=== PATIENT | female | born 1930 | race Caucasian/White ===

== ENCOUNTER 2019-01-04 12:53 | Inpatient (IN) ==
[2019-01-04 13:58] LABS: Basophils % 0.1 %; Eosinophils # 0.3 K/mcL (0.0-0.6); Eosinophils % 3.7 %; Hemoglobin 11.2 g/dL (11.5-15.4); Immature Granulocytes % 0.4 % (0-4); Lymphocytes # 0.5 K/mcL (0.6-4.6); Lymphocytes % 6.7 %; Mean Corpuscular HGB Conc 32.9 g/dL (31.6-35.5); Mean Corpuscular Hemoglobin 30.9 pg (28.0-33.3); Mean Corpuscular Volume 93.7 fL (83.0-100.0); Mean Platelet Volume 9.8 fL (9.4-12.4); Monocytes # 0.6 K/mcL (0.0-1.3); Monocytes % 7.6 %; Platelet Count 254 K/mcL (140-400); Red Blood Count 3.63 M/mcL (3.82-4.97); Red Cell Distribution Width 12.4 % (11.5-14.5); Segmented Neutrophils % 81.5 %
--- NOTE | 2019-01-04 14:06 | Emergency Department Note ---
Disposition Clinical Impression: Weakness Disposition: Admitted As Inpatient Condition: Fair Referrals: Nolberto Zimmer DO [Primary Care Provider] - Forms: ED Satisfaction Letter General Adult HPI - General Chief complaint: ED Weakness Stated complaint: weak Time Seen by Provider: 01/04/19 13:00 Source: patient Mode of arrival: private vehicle Limitations: no limitations Nursing Notes Reviewed: Yes Vital Signs Reviewed: Yes - History of Present Illness HPI Narrative: Patient is an 88-year-old female with past medical history of overactive bladder causing incontinence, essential tremor, low iron, coming in today after family found her on her bathroom floor around 11 AM this morning. Patient states she fell soon after she got up around 7 AM this morning. 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 States that she was dx with a UTI on 12/26/18 and placed on macrobid, which she finished today. She states that she did not have any symptoms of a UTI, but they found it in her urine so gave her abx. She fell this morning while in the bathroom because she could not hold herself up. She has no complaints at this moment, states that nothing hurts. Pain Scale: 0 - Related Data Home Medications Medication Instructions Recorded Confirmed Primidone [Mysoline] 50 mg PO BID 02/10/17 01/04/19 Acetaminophen [Tylenol Arthritis] 650 mg PO QAM 02/26/17 01/04/19 Cholecalciferol (D-3) [Vitamin D] 5,000 unit PO DAILY 02/26/17 01/04/19 Cyanocobalamin (Vitamin B-12) 1,000 mcg PO DAILY 02/26/17 01/04/19 [Vitamin B12] Denosumab [Prolia (For Outpatient 60 mg SQ [id number] 01/04/19 01/04/19 Infusion)] Ferrous Sulfate [Iron] 325 mg PO DAILY 01/04/19 01/04/19 Mirabegron [Myrbetriq] 50 mg PO DAILY 01/04/19 01/04/19 [place]-3/Dha/Epa/Fish Oil [Fish Oil 1 cap PO BID 01/04/19 01/04/19 1,000 mg Softgel] Previous Rx's Medication Instructions Recorded Nitrofurantoin (BID) [Macrobid] 100 mg PO BID #14 capsule 03/06/17 Allergies Allergy/AdvReac Type Severity Reaction Status Date / Time aspirin Allergy Swelling Verified 01/04/19 15:54 of Lip/Tongue/Throat Review of Systems: All systems ED: reviewed and negative except as stated. Constitutional: Denies: fever, chills ENT ED: Denies: ear pain, throat pain Cardiovascular: Denies: chest pain, palpitations Respiratory: Denies: cough, dyspnea Gastrointestinal: Denies: abdominal pain, nausea, vomiting, diarrhea, constipation Genitourinary: Denies: urgency, dysuria, frequency Musculoskeletal: Denies: back pain, neck pain Integumentary: Denies: rash, abrasion Neurological: Denies: headache, numbness, paresthesias Reports: weakness - inability to hold self up, walk Psychiatric: Denies: anxiety, depression Endocrine: Denies: fatigue, heat or cold intolerance Hematological/Lymphatic: Denies: easy bleeding, easy bruising Allergic/Immunologic: Denies: facial swelling, urticaria Past Medical History - Past Medical History Attestation: Yes The following information was validated with the patient. Source: patient Medical history: Reports: arthritis, cancer, osteoporosis, other Surgical history: Reports: hysterectomy, other Psychiatric history: Reports: no psych history - Social History Smoking Status: Never smoker Smokeless Tobacco Status: No Alcohol use: Reports: none Drug use: Reports: none Physical Exam General: A&O x 3. No acute distress. Well developed, thin Head: atraumatic, normocephalic. ENT: No conjunctival injection, no scleral icterus. PERRLA. EOMI. Oropharynx non- erythematous. mucous membranes dry. Neuro: No focal deficits, no speech deficit, no facial droop, mentating well. BUE/BLE Str 5/5. CN II-XII grossly intact. cerebellar testing with [id number] intact but complicated by essential tremor. Pt unable to complete ejmp-bu-xcok bilaterally due to weakness. Pulm: Lungs CTAB A/P. No wheezes, rales, ronchi. Cardio: RRR no m/r/g. Chest not tender to palpation. Abd: Soft, non-distended. Normoactive bowel sounds. Non-tender to palpation. No guarding. Non rigid. Extremities: Radial pulses 2+ rocael, dorsalis pedis/posterior tibialis 2+ rocael. Mild, non-pitting LE edema. No cyanosis, clubbing. Skin: warm, dry, intact. No rashes. Psych: Appropriate mood and affect. Answers questions appropriately. Cooperative with exam. - General Limitations: no limitations General appearance: alert, in no apparent distress Course Course Narrative: Ddx includes: UTI, urosepsis, electrolyte abnormality, cardiac arrhythmia, dehydration Workup will include: CBC, BMP, CK, UA, urine culture, CXR, Lactic, Blood cultures Vital Signs Temperature 100.9 F H 01/04/19 12:58 Pulse Rate 78 01/04/19 12:58 Respiratory Rate 18 01/04/19 12:58 Blood Pressure 125/68 01/04/19 12:58 O2 Sat by Pulse Oximetry 96 01/04/19 12:58 Temperature 100.9 F H 01/04/19 12:58 Pulse Rate 84 01/04/19 15:54 Respiratory Rate 16 01/04/19 15:54 Blood Pressure 120/74 01/04/19 15:54 O2 Sat by Pulse Oximetry 93 01/04/19 15:54 Oxygen Delivery Oxygen Delivery Room Air Medical Decision Making - MDM Narrative Medical decision making narrative: Pts workup was unrevealing as to cause of weakness, mild fever, and tachycardia. She was given 500mL bolus in the department without significant change in vitals. CXR did not reveal acute abnormality. Head CT was negative for acute findings. Lab work did not reveal any acute findings. Pt was admitted to Dr. Moris sims for further work. Patient was given an opportunity to ask questions at bedside and all of their concerns were addressed. Patient verbalized understanding and agreement with plan of care. Pt remained stable while in the department. - Medical Records Medical records reviewed: Yes I reviewed the patient's medical records. - Lab Data Lab results reviewed: Yes I reviewed the patient's lab results. Result diagrams: 01/04/19 13:31 01/04/19 13:31 Lab Results 01/04/19 01/04/19 01/04/19 Range/Units 13:31 13:31 15:30 WBC 7.4 (4.3-11.1) K/mcL RBC 3.63 L (3.82-4.97) M/mcL Hgb 11.2 L (11.5-15.4) g/dL Hct 34.0 L (35.3-44.9) % MCV 93.7 (83.0-100.0) fL MCH 30.9 (28.0-33.3) pg MCHC 32.9 (31.6-35.5) g/dL RDW 12.4 (11.5-14.5) % Plt Count 254 (140-400) K/mcL MPV 9.8 (9.4-12.4) fL Immature Gran % 0.4 (0-4) % Seg Neutrophils % 81.5 % Lymphocytes % 6.7 % Monocytes % 7.6 % Eosinophils % 3.7 % Basophils % 0.1 % Neutrophils # 6.0 (1.6-8.9) K/mcL Lymphocytes # 0.5 L (0.6-4.6) K/mcL Monocytes # 0.6 (0.0-1.3) K/mcL Eosinophils # 0.3 (0.0-0.6) K/mcL Basophils # 0.0 (0.0-0.2) K/mcL Sodium 136 (136-145) mEq/L Potassium 4.0 (3.5-5.1) mEq/L Chloride 100 (98-107) mEq/L Carbon Dioxide 24 (23-29) mEq/L BUN 34 H (8-23) mg/dL Creatinine 1.35 H (0.60-1.20) mg/dL Est GFR ( Amer) 45 L (> 60) Est GFR (Non-Af Amer) 37 L (> 60) BUN/Creatinine Ratio 25 (6-26) Glucose 215 H (70-105) mg/dL Calculated Osmolality 296 (280-300) Calcium 9.0 (8.6-10.3) mg/dL Phosphorus 2.9 (2.7-4.5) mg/dL Magnesium 2.0 (1.6-2.6) mg/dL Creatine Kinase 46 (30-223) Units/L Troponin I 0.03 (< 0.04) ng/mL Urine Color Yellow (Yellow) Urine Clarity Clear (Clear) Urine pH 5.5 (5.0-8.0) pH Units Ur Specific [place] 1.016 (1.010-1.025) Urine Protein Negative (Neg-Trace) mg/dL Urine Glucose (UA) Normal (Normal) mg/dL Urine Ketones Negative (Negative) mg/dL Urine Blood Small H (Negative) Urine Nitrite Negative (Negative) Urine Bilirubin Negative (Negative) Urine Urobilinogen Normal (Normal) mg/dL Ur Leukocyte Esterase Negative (Negative) Urine Microscopic RBC 5-15 H (0-3) per hpf Urine Microscopic WBC 3-5 H (0-3) per hpf Ur Squamous Epith Cells Many H (None-Few) per lpf Urine Bacteria None Seen (None-Few) per hpf Hyaline Casts None Seen (None-Few) per lpf Ur Culture Indicated? NO (NO) - Radiology Data Radiology results reviewed: Yes I reviewed the patient's radiology results. Head CT 01/04/19 14:03 IMPRESSION: No acute intracranial abnormality. Nonspecific white matter disease, likely due to chronic small vessel ischemia. Mild age-related atrophy. D/ / 01/04/2019 16:03:17 Otoniel Martinez MD / cara Interpreting Provider: Otoniel Martinez MD Chest X-Ray 01/04/19 14:04 IMPRESSION: 1. Mild bibasilar opacities, favored to represent atelectasis. 2. Borderline enlargement of the cardiac silhouette. D/ / Thomas Buckley MD / Thomas Buckley MD Interpreting Provider: Thomas Buckley MD - EKG Data EKG #1 EKG attestation: Yes I reviewed and interpreted this EKG. EKG results narrative: HR 105, rhythm sinus tachycardia with frequent PVCs. OR 161, QRS 90, QTc 395. Widespread St depression without any ST elevation. Comparison study from 02/26/17 has baseline artifact and is difficult to compare. Critical Care Time Critical Care Time: No
[2019-01-04 14:26] LABS: Troponin I 0.03 ng/mL (< 0.04)
[2019-01-04 14:30] LABS: Phosphorous 2.9 mg/dL (2.7-4.5)
--- NOTE | 2019-01-04 14:42 | Emergency Department Note ---
Disposition Clinical Impression: Weakness Disposition: Admitted As Inpatient Condition: Fair Forms: ED Satisfaction Letter Time of Disposition: 16:30 General Adult HPI - General Chief complaint: ED Weakness Stated complaint: weak Time Seen by Provider: 01/04/19 13:00 Source: patient Mode of arrival: private vehicle Limitations: no limitations - History of Present Illness Pain Scale: 0 - Related Data Home Medications Medication Instructions Recorded Confirmed Primidone [Mysoline] 50 mg PO BID 02/10/17 01/04/19 Acetaminophen [Tylenol Arthritis] 650 mg PO QAM 02/26/17 01/04/19 Cholecalciferol (D-3) [Vitamin D] 5,000 unit PO DAILY 02/26/17 01/04/19 Cyanocobalamin (Vitamin B-12) 1,000 mcg PO DAILY 02/26/17 01/04/19 [Vitamin B12] Denosumab [Prolia (For Outpatient 60 mg SQ [id number] 01/04/19 01/04/19 Infusion)] Ferrous Sulfate [Iron] 325 mg PO DAILY 01/04/19 01/04/19 Mirabegron [Myrbetriq] 50 mg PO DAILY 01/04/19 01/04/19 [place]-3/Dha/Epa/Fish Oil [Fish Oil 1 cap PO BID 01/04/19 01/04/19 1,000 mg Softgel] Previous Rx's Medication Instructions Recorded Nitrofurantoin (BID) [Macrobid] 100 mg PO BID #14 capsule 03/06/17 Allergies Allergy/AdvReac Type Severity Reaction Status Date / Time aspirin Allergy Swelling Verified 01/04/19 15:54 of Lip/Tongue/Throat Past Medical History - Past Medical History Medical history: Reports: arthritis, cancer, osteoporosis, other Surgical history: Reports: hysterectomy, other Psychiatric history: Reports: no psych history - Social History Smoking Status: Never smoker Smokeless Tobacco Status: No Alcohol use: Reports: none Drug use: Reports: none Physical Exam - General Limitations: no limitations General appearance: alert, in no apparent distress Course Vital Signs Temperature 100.9 F H 01/04/19 12:58 Pulse Rate 78 01/04/19 12:58 Respiratory Rate 18 01/04/19 12:58 Blood Pressure 125/68 01/04/19 12:58 O2 Sat by Pulse Oximetry 96 01/04/19 12:58 Temperature 100.9 F H 01/04/19 12:58 Pulse Rate 84 01/04/19 15:54 Respiratory Rate 16 01/04/19 15:54 Blood Pressure 120/74 01/04/19 15:54 O2 Sat by Pulse Oximetry 93 01/04/19 15:54 Oxygen Delivery Oxygen Delivery Room Air Medical Decision Making - Lab Data Result diagrams: 01/04/19 13:31 01/04/19 13:31 Lab Results 01/04/19 01/04/19 01/04/19 Range/Units 13:31 13:31 15:30 WBC 7.4 (4.3-11.1) K/mcL RBC 3.63 L (3.82-4.97) M/mcL Hgb 11.2 L (11.5-15.4) g/dL Hct 34.0 L (35.3-44.9) % MCV 93.7 (83.0-100.0) fL MCH 30.9 (28.0-33.3) pg MCHC 32.9 (31.6-35.5) g/dL RDW 12.4 (11.5-14.5) % Plt Count 254 (140-400) K/mcL MPV 9.8 (9.4-12.4) fL Immature Gran % 0.4 (0-4) % Seg Neutrophils % 81.5 % Lymphocytes % 6.7 % Monocytes % 7.6 % Eosinophils % 3.7 % Basophils % 0.1 % Neutrophils # 6.0 (1.6-8.9) K/mcL Lymphocytes # 0.5 L (0.6-4.6) K/mcL Monocytes # 0.6 (0.0-1.3) K/mcL Eosinophils # 0.3 (0.0-0.6) K/mcL Basophils # 0.0 (0.0-0.2) K/mcL Sodium 136 (136-145) mEq/L Potassium 4.0 (3.5-5.1) mEq/L Chloride 100 (98-107) mEq/L Carbon Dioxide 24 (23-29) mEq/L BUN 34 H (8-23) mg/dL Creatinine 1.35 H (0.60-1.20) mg/dL Est GFR ( Amer) 45 L (> 60) Est GFR (Non-Af Amer) 37 L (> 60) BUN/Creatinine Ratio 25 (6-26) Glucose 215 H (70-105) mg/dL Calculated Osmolality 296 (280-300) Calcium 9.0 (8.6-10.3) mg/dL Phosphorus 2.9 (2.7-4.5) mg/dL Magnesium 2.0 (1.6-2.6) mg/dL Creatine Kinase 46 (30-223) Units/L Troponin I 0.03 (< 0.04) ng/mL Urine Color Yellow (Yellow) Urine Clarity Clear (Clear) Urine pH 5.5 (5.0-8.0) pH Units Ur Specific [place] 1.016 (1.010-1.025) Urine Protein Negative (Neg-Trace) mg/dL Urine Glucose (UA) Normal (Normal) mg/dL Urine Ketones Negative (Negative) mg/dL Urine Blood Small H (Negative) Urine Nitrite Negative (Negative) Urine Bilirubin Negative (Negative) Urine Urobilinogen Normal (Normal) mg/dL Ur Leukocyte Esterase Negative (Negative) Urine Microscopic RBC 5-15 H (0-3) per hpf Urine Microscopic WBC 3-5 H (0-3) per hpf Ur Squamous Epith Cells Many H (None-Few) per lpf Urine Bacteria None Seen (None-Few) per hpf Hyaline Casts None Seen (None-Few) per lpf Ur Culture Indicated? NO (NO) Attestation Statement - Attestation Attestation: I examined this patient and my medical decision-making was reviewed with the Resident Physician. I agree with the documented findings, disposition and treatment plan as described except to the extent set forth below. Patient presents to the ED with a chief complaint of weakness. Her daughter -in-law found her laying on the floor this morning. They state that she was half dressed and they think she was trying to make her bed. They estimate she fell around 7 AM. She left her life alert laying on her bedside table. She was not within reach of her phone. She was found around 11 AM. She is without complaint at this time. Family does note that she was recently treated for urinary tract infection with Macrobid. On exam she is awake alert and pleasant. Oriented. Moving all extremities. No ecchymosis or signs of trauma. Plan. Septic workup. Patient is febrile 100.9. No source of infection found. Unclear the source of her fever. No UTI. No pneumonia. She is not altered. Patient is admitted for further workup. Head CT 01/04/19 14:03 IMPRESSION: No acute intracranial abnormality. Nonspecific white matter disease, likely due to chronic small vessel ischemia. Mild age-related atrophy. D/ / 01/04/2019 16:03:17 Otoniel Martinez MD / cara Interpreting Provider: Otoniel Martinez MD Chest X-Ray 01/04/19 14:04 IMPRESSION: 1. Mild bibasilar opacities, favored to represent atelectasis. 2. Borderline enlargement of the cardiac silhouette. D/ / Thomas Buckley MD / Thomas Buckley MD Interpreting Provider: Thomas Buckley MD
[2019-01-04] MEDS ORDERED: 0.9 % Sodium Chloride 500 ML IVC ONE (15:31)
[2019-01-04 15:49] LABS: Bilirubin,Urine Negative (Negative); Blood,Urine Small (Negative); Clarity,Urine Clear (Clear); Color,Urine Yellow (Yellow); Glucose,Urine (UA) Normal (Normal); Ketones,Urine Negative (Negative); Leukocyte Esterase,Urine Negative (Negative); Nitrite,Urine Negative (Negative); PH,Urine 5.5 pH Units (5.0-8.0); Protein,Urine Negative (Neg-Trace); Specific Gravity,Urine 1.016 (1.010-1.025); Urobilinogen,Urine Normal (Normal)
[2019-01-04 15:52] LABS: Bacteria,Urine None Seen per hpf (None-Few); Hyaline Casts,Urine None Seen per lpf (None-Few); Squamous Epithelial Cell,Urine Many per lpf (None-Few)
--- NOTE | 2019-01-04 17:09 | Internal Med History&Physical ---
<Dmitri Chambers - Last Filed: 01/04/19 17:48> Date of Encounter: 01/04/19 Internal Medicine - H&P: HPI History of present illness: Ms. Kwan is a 88 year old female Internal Medicine - H&P: Meds Primidone [Mysoline] 50 mg PO BID 02/10/17 [History] Acetaminophen [Tylenol Arthritis] 650 mg PO QAM 02/26/17 [History] Cholecalciferol (D-3) [Vitamin D] 5,000 unit PO DAILY 02/26/17 [History] Cyanocobalamin (Vitamin B-12) [Vitamin B12] 1,000 mcg PO DAILY 02/26/17 [ History] Nitrofurantoin (BID) [Macrobid] 100 mg PO BID #14 capsule 03/06/17 [Rx] Denosumab [Prolia (For Outpatient Infusion)] 60 mg SQ [id number] 01/04/19 [History] Ferrous Sulfate [Iron] 325 mg PO DAILY 01/04/19 [History] Mirabegron [Myrbetriq] 50 mg PO DAILY 01/04/19 [History] Bryan-3/Dha/Epa/Fish Oil [Fish Oil 1,000 mg Softgel] 1 cap PO BID 01/04/19 [History] Allergy/AdvReac Type Severity Reaction Status Date / Time aspirin Allergy Swelling Verified 01/04/19 15:54 of Lip/Tongue/Throat All Systems PM: A 10-system review of systems was performed and is negative for pertinent findings except as documented above in the HPI. - Constitutional Vitals: Temp Pulse Resp BP Pulse Ox 100.9 F H 84 18 103/58 92 01/04/19 12:58 01/04/19 17:09 01/04/19 17:09 01/04/19 17:09 01/04/19 17:09 Internal Med - H&P Results - Labs CBC & Chem 7: 01/04/19 13:31 01/04/19 13:31 Labs: Short CBC 01/04/19 Range/Units 13:31 WBC 7.4 (4.3-11.1) K/mcL Hgb 11.2 L (11.5-15.4) g/dL Hct 34.0 L (35.3-44.9) % Plt Count 254 (140-400) K/mcL Neutrophils # 6.0 (1.6-8.9) K/mcL BMP 01/04/19 13:31 Sodium 136 Potassium 4.0 Chloride 100 Carbon Dioxide 24 BUN 34 H Creatinine 1.35 H Glucose 215 H Calcium 9.0 Cardiac Enzymes 01/04/19 Range/Units 13:31 Troponin I 0.03 (< 0.04) ng/mL Urine 01/04/19 Range/Units 15:30 Urine Color Yellow (Yellow) Urine Clarity Clear (Clear) Urine pH 5.5 (5.0-8.0) pH Units Ur Specific [place] 1.016 (1.010-1.025) Urine Protein Negative (Neg-Trace) mg/dL Urine Glucose (UA) Normal (Normal) mg/dL - Impressions ITS Impressions Head CT 01/04/19 14:03 IMPRESSION: No acute intracranial abnormality. Nonspecific white matter disease, likely due to chronic small vessel ischemia. Mild age-related atrophy. D/ / 01/04/2019 16:03:17 Otoniel Martinez MD / cara Interpreting Provider: Otoniel Martinez MD Chest X-Ray 01/04/19 14:04 IMPRESSION: 1. Mild bibasilar opacities, favored to represent atelectasis. 2. Borderline enlargement of the cardiac silhouette. D/ / Thomas Buckley MD / Thomas Buckley MD Interpreting Provider: Thomas Buckley MD - Time Spent With Patient Total time spent is greater than 50% in coordination of care (as documented) at patient's floor/unit and/or counseling patient: - Attending Attestation /I examined this patient and my medical decision-making was reviewed with the Resident Physician on 01/04/19 . I agree with the documented findings, disposition and treatment plan as described except to the extent set forth below. Ms Kwan is 88 y/o female brought to ED by family after a fall. She is usually very active. Lives alone near son and daughter in law. 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 Last night she was her usual self. Seemed to be more tired around 10PM. This AM was up making her bed when she was so weak she could stand on her own. No fever at home but had fever on arrival here. No cough, headache, chest pain, GI issues. Recent UTI treatment. At this time she is very somnolent. She arouses to stimuli but falls back asleep. Exam Alert but somnolent. Pupils reactive. EOMI Mucus membranes dry Neck supple. No JVD Heart reg - S4 present and I think S3 as well. Lungs diminished. No wheeze Abd soft and nontender No edema. OA noted. No focal neuro deficit noted. I/P 1. Somnolence/acute metabolic encephalopathy - large differential. Could be infection, myocardial ischemia, dehydration, neuro process. Obtain cultures, hydrate overnight. Check TSH and echo. Recheck labs in AM. Serial troponin. Had one recorded fever. 2. Overactive bladder 3. Weight loss - family says she has lost significant weight over last 5 months. Further diagnoses and plan as above. Placed in observation at this time. <Chel Perez N - Last Filed: 01/04/19 19:34> Date of Encounter: 01/04/19 Time of Encounter: 17:09 Internal Medicine - H&P: HPI Chief complaint: Weakness Admitted From: Emergency Dept Plans for Post Hospital Care: Home History of present illness: Ms. Kwan is a 88 year old female with a history of arthritis, osteoporosis, and essential tremor who presented to the emergency department after being found on the floor this morning after a fall. Patient reportedly was very active yesterday, and was involved in decorating several grades it [place] [employer] without issue. Patient's son and [id number] live nearby, and frequently check on her. They report that when he checked on her at 11 this morning, they found her sprawled on the floor. Patient reportedly appeared to be in the process of getting dressed and making her bed when she fell. Patient states that she was too weak to get up after falling, but denies any pain or injury. Hansa stevens did recently complete a course of antibiotic therapy for a UTI. She denies any recent illnesses and states that she has been feeling well. Initial vital signs obtained in the emergency department were significant for elevated temperature of 100.9. Laboratory studies were remarkable for serum c reatinine of 1.35 and glucose of 215. Head CT was negative for any acute intracranial abnormality. Chest x-ray demonstrated mild bibasilar opacities, favored to represent atelectasis. Patient was administered a fluid bolus while in the emergency department, with no improvement in her symptoms. Upon arrival to the nursing floor, patient was seen and evaluated at the bedside. At that time, she was noted to have significant rigors, which she was unable to control. Patient did report some shortness of breath since this morning, but denied any chest pain, cough, chest congestion, nausea, vomiting, abdominal pain, dysuria, dizziness, or lightheadedness. 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 - Constitutional Constitutional: chills, fever(s), falls, no anorexia - Cardiovascular Cardiovascular ROS IM: no chest pain, no diaphoresis, no dyspnea, no edema, no lightheadedness, no syncope - Respiratory Respiratory: dyspnea, no cough, no wheezing, no chest congestion, no excessive phlegm production - Gastrointestinal Gastrointestinal: no abdominal pain, no diarrhea, no hematemesis, no hematochezia, no melena, no nausea, no vomiting - Genitourinary Genitourinary: no change in urinary stream, no dysuria, no flank pain, no hematuria - Musculoskeletal Musculoskeletal ROS IM: no deformity, no numbness, no tingling - Neurological Neurological ROS: tremor(s), weakness, no confusion, no convulsions, no dizziness, no focal weakness, no numbness, no tingling - Constitutional Vitals: Temp Pulse Resp BP Pulse Ox 100.9 F H 84 16 120/74 93 01/04/19 12:58 01/04/19 15:54 01/04/19 15:54 01/04/19 15:54 01/04/19 15:54 Exam: GENERAL: Elderly adult female lying in bed with obvious rigors. HEENT: Atraumatic and normocephalic. Nasal cannula in place. CARDIOVASCULAR: Regular rate and rhythm. S1 and S2 present. RESPIRATORY: Clear to auscultation bilaterally. Chest rises and falls symmetrically without accessory muscle use. GASTROINTESTINAL: Abdomen is soft, nontender, nondistended. Bowel sounds present 4 quadrants. EXTREMITIES: No clubbing, cyanosis, or edema. SKIN: Warm, dry, and intact. NEUROLOGIC: Alert and oriented x3. Patient is cooperative with exam and answers questions appropriately, but is able to provide only a small amount of her medical history. No apparent focal deficits. PSYCHIATRIC: Appropriate mood and affect. Internal Med - H&P Results - Labs CBC & Chem 7: 01/04/19 13:31 01/04/19 13:31 Labs: Short CBC 01/04/19 Range/Units 13:31 WBC 7.4 (4.3-11.1) K/mcL Hgb 11.2 L (11.5-15.4) g/dL Hct 34.0 L (35.3-44.9) % Plt Count 254 (140-400) K/mcL Neutrophils # 6.0 (1.6-8.9) K/mcL BMP 01/04/19 13:31 Sodium 136 Potassium 4.0 Chloride 100 Carbon Dioxide 24 BUN 34 H Creatinine 1.35 H Glucose 215 H Calcium 9.0 Cardiac Enzymes 01/04/19 Range/Units 13:31 Troponin I 0.03 (< 0.04) ng/mL Urine 01/04/19 Range/Units 15:30 Urine Color Yellow (Yellow) Urine Clarity Clear (Clear) Urine pH 5.5 (5.0-8.0) pH Units Ur Specific [place] 1.016 (1.010-1.025) Urine Protein Negative (Neg-Trace) mg/dL Urine Glucose (UA) Normal (Normal) mg/dL - Impressions ITS Impressions Head CT 01/04/19 14:03 IMPRESSION: No acute intracranial abnormality. Nonspecific white matter disease, likely due to chronic small vessel ischemia. Mild age-related atrophy. D/ / 01/04/2019 16:03:17 Otoniel Martinez MD / cara Interpreting Provider: Otoniel Martinez MD Chest X-Ray 01/04/19 14:04 IMPRESSION: 1. Mild bibasilar opacities, favored to represent atelectasis. 2. Borderline enlargement of the cardiac silhouette. D/ / Thomas Buckley MD / Thomas Buckley MD Interpreting Provider: Thomas Buckley MD - Assessment and Plan (1) SIRS (systemic inflammatory response syndrome) Current Visit: Yes Status: Acute Assessment and plan: Suspect secondary to UTI versus pneumonia. Patient meets sirs criteria with heart rate greater than 90 bpm, initial temperature 100.9, and possible infectious source. Patient did receive 1000 mg Tylenol in the emergency department; however, temperature was noted to be further elevated at 101.0 soon after arriving to the nursing floor. Patient recently completed course of antibiotics for urinary tract infection. Urinalysis performed in the ED appears unremarkable; however, due to recent infection, we will obtain a urine culture as well. Chest x-ray demonstrated mild bibasilar opacities. Flu swab performed in the emergency department was negative. Plan: - Blood and urine cultures pending. Respiratory infectious panel pending. - Lactic acid pending. - Start broad-spectrum antibiotic therapy with azithromycin and Rocephin to cover for possible UTI and/or pneumonia. - One-time dose of demerol 12.5mg ordered for rigors. - Continuous pulse oximetry. (2) Weakness Current Visit: Yes Status: Acute Assessment and plan: Suspect secondary to acute infectious process vs. dehydration. - Continue IVF hydration with 0.9% NaCl. - TSH pending. - Repeat troponin pending. Continue cardiac monitoring. - Consults placed to physical and occupational therapy for evaluation. (3) Fall Current Visit: Yes Status: Acute Assessment and plan: Likely secondary to weakness. Patient was reportedly found on the floor at home at approximately 11 AM. Per her son, patient appeared to have been in the process of getting dressed and making her bed when she fell. Patient denies any pain or discomfort at this time. Head CT demonstrated no acute intracranial abnormalities. - Plan as above. Qualifiers: Encounter type: initial encounter Qualified Code(s): W19.XXXA - Unspecified fall, initial encounter (4) GEORGINA (acute kidney injury) Current Visit: Yes Status: Acute Assessment and plan: Likely secondary to dehydration. Serum creatinine on initial laboratory studies was elevated at 1.35. Patient's baseline appears to be around 1.0. - Continue IV fluids. - Repeat in trend serum creatinine with morning laboratory studies. (5) Hyperglycemia Current Visit: Yes Status: Acute Assessment and plan: Unclear etiology. Patient denies any history of diabetes or other hyperglycemia; however, initial laboratory studies demonstrated significantly elevated serum glucose of 215. - Repeat and monitor with laboratory studies. (6) DVT prophylaxis Current Visit: Yes Status: Acute Assessment and plan: - Heparin SQ. - Time Spent With Patient Total time spent is greater than 50% in coordination of care (as documented) at patient's floor/unit and/or counseling patient:
[2019-01-04] MEDS ORDERED: *HR* Meperidine 25 MG/ML SYRINGE IVP ONE (18:24)
[2019-01-04] MEDS ORDERED: Naloxone 0.4 MG/ML INJ IVP PRN (18:26)
[2019-01-04] MEDS ORDERED: Azithromycin 500 MG in D5% in Water 250 ML IVPB SCH (19:00)
[2019-01-04 19:40] LABS: VBG HCO3 24 mEq/L (21-27); VBG PCO2 38 mmHg (41-51); VBG PH 7.41 pH Units (7.32-7.42); VBG PO2 35 mmHg (25-50)
[2019-01-04 19:56] LABS: Troponin I 0.03 ng/mL (< 0.04)
[2019-01-04 20:10] LABS: Thyroid Stimulating Hormone 1.618 mcIU/mL (0.340-5.600)
[2019-01-04] MEDS: 0.9 % Sodium Chloride 1,000 ML IVC SCH (20:51)
[2019-01-04] MEDS: cefTRIAXone 1,000 MG in Water for inj. (sterile) 20 ML 10 ML IVP SCH (20:52)
[2019-01-04] MEDS: Acetaminophen 325 MG TABLET PO PRN (21:15)
[2019-01-04] MEDS: *HR* Heparin 5,000 UNIT/ML VIAL SQ SCH (21:15)
[2019-01-04 23:09] LABS: Adenovirus Not Detected (Not Detect); Bordetella Pertussis Not Detected (Not Detect); Chlamydophila pneumoniae Not Detected (Not Detect); Coronavirus 229E Not Detected (Not Detect); Coronavirus HKU1 Not Detected (Not Detect); Coronavirus NL63 Not Detected (Not Detect); Coronavirus OC43 Not Detected (Not Detect); Human Metapneumovirus Not Detected (Not Detect); Human Rhinovirus/Enterovirus Not Detected (Not Detect); Influenza A Subtype 2009 H1 Not Detected (Not Detect); Influenza A Untypeable Not Detected (Not Detect); Influenza B Not Detected (Not Detect); Mycoplasma pneumoniae Not Detected (Not Detect); Parainfluenza Virus 1 Not Detected (Not Detect); Parainfluenza Virus 2 Not Detected (Not Detect); Parainfluenza Virus 3 Not Detected (Not Detect); Parainfluenza Virus 4 Not Detected (Not Detect); Respiratory Syncytial Virus Not Detected (Not Detect)
--- NOTE | 2019-01-05 04:12 | Event Note ---
Date of Encounter: 01/05/19 Time of Encounter: 04:11 Notified by nurse patient heart rate increasing to [id number]. EKG ordered showing atrial fibrillation with rapid ventricular response. Patient asymptomatic, vitals otherwise stable. We will order Cardizem drip and cardiology consult, will need called later this a.m.
[2019-01-05 05:25] LABS: Basophils % 0.2 %; Eosinophils # 0.2 K/mcL (0.0-0.6); Eosinophils % 2.7 %; Hemoglobin 10.1 g/dL (11.5-15.4); Immature Granulocytes % 0.5 % (0-4); Lymphocytes # 0.4 K/mcL (0.6-4.6); Lymphocytes % 4.6 %; Mean Corpuscular HGB Conc 32.6 g/dL (31.6-35.5); Mean Corpuscular Hemoglobin 30.3 pg (28.0-33.3); Mean Corpuscular Volume 93.1 fL (83.0-100.0); Mean Platelet Volume 9.7 fL (9.4-12.4); Monocytes # 0.4 K/mcL (0.0-1.3); Monocytes % 4.9 %; Neutrophils # 7.2 K/mcL (1.6-8.9); Platelet Count 187 K/mcL (140-400); Red Blood Count 3.33 M/mcL (3.82-4.97); Red Cell Distribution Width 12.7 % (11.5-14.5); Segmented Neutrophils % 87.1 %
[2019-01-05] MEDS: *HR* Heparin 5,000 UNIT/ML VIAL SQ SCH ×2 (05:35→18:28)
[2019-01-05 05:45] LABS: Calcium 7.9 mg/dL (8.6-10.3); Potassium 3.9 mEq/L (3.5-5.1)
--- NOTE | 2019-01-05 07:32 | Internal Med Progress Note ---
<Chel Perez N - Last Filed: 01/05/19 15:38> Hospitalist Progress Note - Encounter Date of Encounter: 01/05/19 Time of Encounter: 07:32 - Subjective Interval History: Patient seen and evaluated at the bedside. Review of overnight events shows the patient went into atrial fibrillation with rapid ventricular response early this morning, and was started on a Cardizem drip. Cardiology consult has been placed. Morning laboratory studies are significant for worsening of AK I. Patient continues to be intermittently febrile, but denies feeling feverish. On evaluation, patient continues to deny any acute complaints or concerns, and states that she feels better than she did yesterday. She reports improvement in shortness of breath. She denies any complaints at this time. - Exam Vitals: Temp Pulse Resp BP Pulse Ox 98.0 F 100 18 109/53 91 01/05/19 05:32 01/05/19 07:06 01/05/19 07:06 01/05/19 07:06 01/05/19 07:06 Exam: GENERAL: Elderly adult female lying in bed with obvious rigors. HEENT: Atraumatic and normocephalic. Nasal cannula in place. CARDIOVASCULAR: Regular rate and rhythm. S3 present. RESPIRATORY: Clear to auscultation bilaterally. Chest rises and falls symmetrically without accessory muscle use. GASTROINTESTINAL: Abdomen is soft, nontender, nondistended. Bowel sounds present 4 quadrants. EXTREMITIES: No clubbing, cyanosis, or edema. SKIN: Warm, dry, and intact. NEUROLOGIC: Patient is cooperative with exam and answers questions appropriately. No apparent focal deficits. Negative Brudzinski sign. PSYCHIATRIC: Appropriate mood and affect. - Assessment and Plan (1) SIRS (systemic inflammatory response syndrome) Current Visit: Yes Status: Acute Assessment and Plan: Suspect secondary to UTI versus pneumonia versus meningitis/encephalitis. Patient initially met SIRS criteria with heart rate greater than 90 bpm, initial temperature 100.9, and possible infectious source. Patient did receive 1000 mg Tylenol in the emergency department; however, temperature was noted to be further elevated at 101.0 soon after arriving to the nursing floor. Patient recently completed course of antibiotics for urinary tract infection. Urinalysis performed in the ED appears unremarkable; however, due to recent infection, we will obtain a urine culture as well. Chest x-ray demonstrated mild bibasilar opacities. Flu swab performed in the emergency department was negative. Patient has continued to spike intermittent fevers this morning, with maximum temperature of 102.6 despite antibiotic therapy. Respiratory infectious panel was negative, and lactic acid was found to be within normal limits. Concern for possible meningitis/encephalitis in light of continued fevers, and family reports of continued intermittent confusion/somnolence. Chest CT performed this afternoon was significant for presence of focal consolidation in the peripheral left upper lobe suspicious for pneumonia, as well as bronchial wall thickening suggestive of bronchitis. Patient was also noted to have small pleural effusions with adjacent compressive atelectasis, large hiatal hernia with intrathoracic stomach, and extensive athero-sclerotic disease including the coronary arteries. Plan: - Repeat blood cultures obtained this morning. Initial blood and urine cultures pending. - Discontinue azithromycin. Initiate broad-spectrum antimicrobial therapy to include coverage for meningitis with acyclovir, ampicillin, ceftriaxone, and vancomycin. - Urine legionella and strep pneumo antigens pending. - CT abdomen and pelvis pending. - Neurology consult placed. Anticipate likely LP to evaluate for meningitis. Appreciate recommendations. - Continue supplemental oxygen as needed to maintain appropriate saturation, as well as continuous pulse oximetry monitoring. (2) Atrial fibrillation with RVR Current Visit: Yes Status: Acute Assessment and Plan: New onset of atrial fibrillation with RVR overnight. Patient is currently on cardizem gtt. Per cardiology, plan for continued titration down of gtt and transition to oral cardizem. Patient will also undergo repeat TTE, as her last study was performed in 2017. - Continue telemetry monitoring and management per cardiology recommendations. (3) Weakness Current Visit: Yes Status: Acute Assessment and Plan: Suspect secondary to acute infectious process vs. dehydration. - Continue IVF hydration with 0.9% NaCl. - Consults placed to physical and occupational therapy for evaluation. (4) Fall Current Visit: Yes Status: Acute Assessment and Plan: Likely secondary to weakness. Patient was reportedly found on the floor at home at approximately 11 AM. Per her son, patient appeared to have been in the process of getting dressed and making her bed when she fell. Patient denies any pain or discomfort at this time. Head CT demonstrated no acute intracranial abnormalities. - Plan as above. (5) GEORGINA (acute kidney injury) Current Visit: Yes Status: Acute Assessment and Plan: Likely secondary to dehydration. Serum creatinine on initial laboratory studies was elevated at 1.35. Patient's baseline appears to be around 1.0. Morning laboratory studies demonstrated worsening serum creatinine of 1.51 despite IV fluid hydration; however, patient has had new onset of A. fib with RVR overnight, which may be contributing to her GEORGINA. - Continue IV fluids. - Repeat in trend serum creatinine with morning laboratory studies. - Anticipate obtaining a urine studies if creatinine continues to worsen. (6) Hyperglycemia Current Visit: Yes Status: Acute Assessment and Plan: Unclear etiology. Patient denies any history of diabetes or other hyperglycemia; however, initial laboratory studies demonstrated significantly elevated serum glucose of 215. Hyperglycemia is improved on morning laboratory studies, though still elevated at 158. - Repeat and monitor with laboratory studies. (7) DVT prophylaxis Current Visit: Yes Status: Acute Assessment and Plan: - Heparin SQ. (8) Lung nodule, multiple Current Visit: Yes Status: Acute Assessment and Plan: Chest CT demonstrated scattered small nodules throughout both lungs measuring up to 5 mm. Per radiology report, could be metastatic in the setting of known cancer; however, nonspecific otherwise. - Recommend repeat CT in 12 months to ensure resolution of these nodules. - Time Spent with Patient Total time spent is greater than 50% in coordination of care (as documented) at patient's floor/unit and/or counseling patient: Internal Medicine: Result - Labs CBC & Chem 7: 01/05/19 05:02 01/05/19 05:02 Labs: Short CBC 01/04/19 01/05/19 Range/Units 13:31 05:02 WBC 7.4 8.3 (4.3-11.1) K/mcL Hgb 11.2 L 10.1 L (11.5-15.4) g/dL Hct 34.0 L 31.0 L (35.3-44.9) % Plt Count 254 187 (140-400) K/mcL Neutrophils # 6.0 7.2 (1.6-8.9) K/mcL BMP 01/04/19 01/05/19 13:31 05:02 Sodium 136 134 L Potassium 4.0 3.9 Chloride 100 102 Carbon Dioxide 24 25 BUN 34 H 40 H Creatinine 1.35 H 1.51 H Glucose 215 H 158 H Calcium 9.0 7.9 L Cardiac Enzymes 01/04/19 01/04/19 Range/Units 13:31 19:20 Troponin I 0.03 0.03 (< 0.04) ng/mL Urine 01/04/19 Range/Units 15:30 Urine Color Yellow (Yellow) Urine Clarity Clear (Clear) Urine pH 5.5 (5.0-8.0) pH Units Ur Specific [place] 1.016 (1.010-1.025) Urine Protein Negative (Neg-Trace) mg/dL Urine Glucose (UA) Normal (Normal) mg/dL - Impressions Impressions Head CT 01/04/19 14:03 IMPRESSION: No acute intracranial abnormality. Nonspecific white matter disease, likely due to chronic small vessel ischemia. Mild age-related atrophy. D/ / 01/04/2019 16:03:17 Otoniel Martinez MD / cara Interpreting Provider: Otoniel Martinez MD Chest X-Ray 01/04/19 14:04 IMPRESSION: 1. Mild bibasilar opacities, favored to represent atelectasis. 2. Borderline enlargement of the cardiac silhouette. D/ / Thomas Buckley MD / Thomas Buckley MD Interpreting Provider: Thomas Buckley MD Consult Discharge Plan - Plan Referrals: Nolberto Zimmer DO [Primary Care Provider] - 01/11/19 11:30 am <Dmitri Chambers - Last Filed: 01/05/19 17:08> Hospitalist Progress Note - Encounter Date of Encounter: 01/05/19 - Exam Vitals: Temp Pulse Resp BP Pulse Ox 100.1 F H 88 19 124/63 93 01/05/19 16:50 01/05/19 16:50 01/05/19 16:50 01/05/19 16:50 01/05/19 16:50 - Assessment and Plan (1) Weakness Current Visit: Yes Status: Acute (2) SIRS (systemic inflammatory response syndrome) Current Visit: Yes Status: Acute (3) Fall Current Visit: Yes Status: Acute (4) GEORGINA (acute kidney injury) Current Visit: Yes Status: Acute (5) Hyperglycemia Current Visit: Yes Status: Acute (6) DVT prophylaxis Current Visit: Yes Status: Acute (7) Atrial fibrillation with RVR Current Visit: Yes Status: Acute (8) Lung nodule, multiple Current Visit: Yes Status: Acute (9) Sepsis Current Visit: Yes Status: Acute - Time Spent with Patient Total time spent is greater than 50% in coordination of care (as documented) at patient's floor/unit and/or counseling patient: Internal Medicine: Result - Labs CBC & Chem 7: 01/05/19 05:02 01/05/19 05:02 Labs: Short CBC 01/05/19 Range/Units 05:02 WBC 8.3 (4.3-11.1) K/mcL Hgb 10.1 L (11.5-15.4) g/dL Hct 31.0 L (35.3-44.9) % Plt Count 187 (140-400) K/mcL Neutrophils # 7.2 (1.6-8.9) K/mcL BMP 01/05/19 05:02 Sodium 134 L Potassium 3.9 Chloride 102 Carbon Dioxide 25 BUN 40 H Creatinine 1.51 H Glucose 158 H Calcium 7.9 L Cardiac Enzymes 01/04/19 Range/Units 19:20 Troponin I 0.03 (< 0.04) ng/mL Liver Function 01/05/19 Range/Units 05:02 Total Bilirubin 0.5 (0.3-1.0) mg/dL Direct Bilirubin 0.1 (0.0-0.2) mg/dL AST 17 (13-39) Units/L ALT 10 (7-52) Units/L Alkaline Phosphatase 41 (34-104) Units/L Albumin 3.2 L (3.5-5.7) g/dL - Impressions Impressions Chest CT 01/05/19 13:29 IMPRESSION: 1. Focal consolidation in the peripheral left upper lobe is suspicious for pneumonia. Bronchial wall thickening suggests bronchitis. 2. Small pleural effusions with adjacent compressive atelectasis. 3. Scattered small nodules throughout both lungs measuring up to 5 mm. If patient has known cancer, these could be metastatic. Otherwise these are non-specific. Consider follow-up low-dose chest CT in 12 months if patient is high risk for lung cancer (2017 Fleischner Society guidelines). 4. Large hiatal hernia with intrathoracic stomach. 5. Extensive atherosclerotic disease including the coronary arteries. RECOMMENDATIONS: Fleischner Society guidelines for follow-up and management of incidentally detected pulmonary nodules: Multiple Solid Nodules: Nodule size less than 6 mm In a low-risk patient, no routine follow-up. In a high-risk patient, optional CT at 12 months. - Low risk patients include individuals with minimal or absent history of smoking and other known risk factors. - High risk patients include individuals with a history or smoking or known risk factors. Radiology 2017 http://pubs.rsna.org/doi/full/10.1148/radiol.5324788614 D/ / Shay Henson MD / Shay Henson MD Interpreting Provider: Shay Henson MD - Attending Attestation I examined this patient and my medical decision-making was reviewed with the Resident Physician on 01/05/19. I agree with the documented findings, disposition and treatment plan as described except to the extent set forth below. Ms Kwan is currently admitted for sepsis - not clear source. She remains moderate to high risk due to potential for worsening clinical status. Ms Kwan was confused and febrile again this AM. Developed rapid a fib last night and on cardizem drip. No CP. Denies dyspnea. No GI issues. Exam Alert Confused to place and time. Mucus membranes dry Heart irreg and tachy Decreased breath sounds Abd soft No edema I/P 1. Sepsis - unclear source - ? if pneumonia, [employer], urine, other. Abx broadened today. Neuro to eval due to confusion. 2. Atrial fibrillation - on card drip. Cardiology consulted during the night 3. Essential tremor - primidone restarted Further diagnoses and plan as above Pt remains significantly ill and will be hospitalized for greater than 2 more midnights. Changed to inpatient. ___ <Providence,Chel N - Last Filed: 01/05/19 15:38> (4) Fall Qualifiers: Encounter type: initial encounter Qualified Code(s): W19.XXXA - Unspecified fall, initial encounter <Dmitri Chambers A - Last Filed: 01/05/19 17:08> (3) Fall Qualifiers: Encounter type: subsequent encounter Qualified Code(s): W19.XXXD - Unspecified fall, subsequent encounter (9) Sepsis Qualifiers: Sepsis type: sepsis due to unspecified organism Qualified Code(s): A41.9 - Sepsis, unspecified organism
[2019-01-05] MEDS: cefTRIAXone 1,000 MG in Water for inj. (sterile) 20 ML 10 ML IVP SCH (08:28)
[2019-01-05] MEDS: 0.9 % Sodium Chloride 1,000 ML IVC SCH ×3 (08:42→18:27)
[2019-01-05] MEDS: Acetaminophen 325 MG TABLET PO PRN (08:50)
[2019-01-05] MEDS ORDERED: Mirabegron [Myrbetriq] 50 MG PO SCH (09:00)
[2019-01-05] MEDS ORDERED: Primidone 50 MG TABLET PO SCH (09:00)
[2019-01-05] MEDS ORDERED: Acyclovir 500 MG in D5% in Water 100 ML IVPB SCH (09:20)
[2019-01-05] MEDS ORDERED: Ampicillin 2 GM in 0.9 % Sodium Chloride Mini Bag 100 ML IVPB SCH (12:00)
[2019-01-05] MEDS ORDERED: cefTRIAXone 1,000 MG in Water for inj. (sterile) 20 ML 10 ML IVP ONE (13:00)
[2019-01-05] MEDS ORDERED: Vancomycin 1 EACH in 0.9 % Sodium Chloride 250 ML IVPB SCH ×2 (13:00→17:04)
--- NOTE | 2019-01-05 13:21 | Neurology - Consult Note ---
<Ricky Medina - Last Filed: 01/05/19 16:34> Date of Encounter: 01/05/19 Time of Encounter: 13:21 Assessment and Plan (1) Altered mental status Current Visit: Yes Status: Acute - Family and patient both report weakness as well as disorientation and confusion x 2 days - Etiology unclear at this time however differential is broad and includes infectious, dehydration, fever induced - She does meet sirs criteria as below - Infectious etiology also unclear with UA nonsuggestive infection and chest x- ray does not show obvious consolidation - There is a possibility for encephalitis - Differential also includes malginancy. Would explain fevers as well as weight loss reported to PCP - Head CT in the emergency department shows no acute process with chronic aging changes - Neuro exam is non focal with no defecits noted, she does appear diffusely weak. No nuchal rigidity noted. - She does show persistent fevers despite abx. Coverage for most organisms but no atypical or anaerobic coverage. - Family remarks about history of diverticulitis but patient is not having symptoms. - Initially started on Rocephin and azithromycin to cover for both UTI as well as possible community acquired pneumonia - Antibiotics escalated today to acyclovir, vancomycin, Rocephin, ampicillin, day #1 Plan - At this time, patient has reportedly improved and is near baseline per family - Unknown etiology at this time but it is appearing less likely to be neurologic given lack of headache or neck pain - Recommend continuing supportive care - Consider alternative etiologies for fever and weakness. - Can continue empiric antibiotics for now and will re-evaluate tomorrow. - Will hold off LP today. Will continue to follow Qualifiers: Altered mental status type: delirium Qualified Code(s): R41.0 - Disorientation, unspecified (2) SIRS (systemic inflammatory response syndrome) Current Visit: Yes Status: Acute - Continue Sinemet and 2/4 sirs criteria with fevers with a MAXIMUM TEMPERATURE of 102 as well as tachycardia in the 90s - No evidence of leukocytosis and lactic acid within normal limits at 1.8 - Source unclear at this time, unlikely meningitis given physical exam however encephalitis is still a possibility. - Alternative etiologies of fever and tachycardia include malignancy, dehydration, other infectious process, medication induced - Antibiotics started per primary team including acyclovir, ampicillin, ceftriaxone, vancomycin Plan - Clinically patient improving - No definite neurologic source at this time. - Will continue to monitor - Management as above (3) Essential tremor Current Visit: Yes Status: Chronic - Chronic and at baseline per family - Diagnosed by Dr. Wolf - Well controlled on home primidone, will continue History of Present Illness Chief complaint: Weakness, altered mental status HPI: Ms. Kwan is a 88 year old female with past medical history of arthritis, osteoporosis, CKD, central tremor presented to the emergency department with complaint of weakness and altered mental status. Of note, patient is not a reliable historian and does not remember the preceding events prior to coming to the hospital. [id number] who is at bedside and contributes to history as well as chart review. It was reported the patient presented after a fall at home where she lives independently. Patient states that she recently had wood floors installed and was wearing slippery socks. She denies any history or symptoms of lightheadedness, dizziness, loss of consciousness. She does not remember hitting her head. Patient states that she was too weak to get up following the fall. She was then found by her son and [id number] who live nearby and frequent check on her. Prior to that, patient was reportedly exerting herself by cleaning [place]. She does state that she has been eating and drinking well. She denies any symptoms of recent fevers, chills, chest pains, shortness of breath, nausea, vomiting, urinary symptoms including dysuria or frequency, changes in bowel movements, focal weakness, numbness, tingling. She reports no limited range of motion in her neck and denies headache. Per [id number]-xu-cvy, patient is normally alert and oriented 4 and has no trouble with activities of daily living. Her memory is normally very sharp. Per outpatient chart review, patient follows with Dr. Zimmer for her PCP. She had reported weight loss at last visit in October with unknown cause. Anemia, CKD, essential tremors were stable at that time. She is a never smoker and non drinker. She has also previously been under [facility] care for severe protein calorie malnutrition in 2017. It was noted on that documentation she was forgetful at that time. No documented colonoscopy in our records. Upon presentation to the emergency room, vital signs were significant for temperature of 100.9, otherwise unremarkable. Laboratory results were significant for a baseline anemia, acute kidney injury with a creatinine of 1.35, lactic acid within normal limits at 1.8. Urinalysis was obtained and shows no evidence of infection and respiratory infectious panel was negative as well. Head CT was obtained emergency department and showed no acute intracranial abnormality with nonspecific white matter disease and age-related atrophy. Chest x-ray showed mild bibasilar opacities favoring atelectasis. Neurology was consulted on 01/05/19 for concerns of altered mental status as well as concerns for encephalitis/meningitis. Today during interview, patient again states that she has no complaints at this time. Review of systems continues to be negative. [id number] does feel that she continues to be altered in her mental status and both memory as well as with confusion. Past Med Surg Social Fam HX - Past Medical History Medical history: arthritis, cancer, osteoporosis, other Additional medical history: tremors, cervical CA-70's Psychiatric history: no psych history - Past Surgical History Surgical History: hysterectomy, other Additional surgical history: EIC Back, platelet in left wrist 12 screws - Social History Smoking Status: Never smoker Smokeless Tobacco Status: No Alcohol use: none Drug use: none Medications and Allergies Primidone [Mysoline] 50 mg PO BID 02/10/17 [History] Acetaminophen [Tylenol Arthritis] 650 mg PO QAM 02/26/17 [History] Cholecalciferol (D-3) [Vitamin D] 5,000 unit PO DAILY 02/26/17 [History] Cyanocobalamin (Vitamin B-12) [Vitamin B12] 1,000 mcg PO DAILY 02/26/17 [History] Nitrofurantoin (BID) [Macrobid] 100 mg PO BID #14 capsule 03/06/17 [Rx] Denosumab [Prolia (For Outpatient Infusion)] 60 mg SQ [id number] 01/04/19 [History] Ferrous Sulfate [Iron] 325 mg PO DAILY 01/04/19 [History] Mirabegron [Myrbetriq] 50 mg PO DAILY 01/04/19 [History] [place]-3/Dha/Epa/Fish Oil [Fish Oil 1,000 mg Softgel] 1 cap PO BID 01/04/19 [History] Allergy/AdvReac Type Severity Reaction Status Date / Time aspirin Allergy Swelling Verified 01/04/19 15:54 of Lip/Tongue/Throat All Systems: The remainder of the systems were reviewed and are negative Review of Systems: - Constitutional: Admits to weakness. Denies fevers, chills, weight loss, generalized fatigue - Head/Neck: Denies BEAULIEU, neck stiffness - EENT: Denies vision changes/blurriness, trhinorrhea, congestion, sore throat, odynaphagia - CVS: Denies chest pain, palpitations, ANDERSON, orthopnea - Pulm: Denies SOB, cough, sputum - GI: Denies abdominal pain, anorexia, nausea, vomiting, diarrhea, constipation - : Denies dysuria, increased frequency, urgency, hematuria, - MSK: Denies joint pain, limited ROM - Skin: Denies rashes, ulcers, color changes, - Neuro: Admits to confusion, weakness. Denies BEAULIEU, paresthesias, focal deficits, ataxia, Physical Examination - Vital Signs Vital Signs: Initial Vital Signs Temp Pulse Resp BP Pulse Ox 100.9 F H 78 18 125/68 96 01/04/19 12:58 01/04/19 12:58 01/04/19 12:58 01/04/19 12:58 01/04/19 12:58 - Constitutional General appearance: comfortable - Neurologic Sensorimotor examination: intact Motor examination - right side: 4/5: deltoids, biceps, triceps, wrist flexion, wrist extension, portfolio assistant, tibialis Anterior, quadriceps, toe extension (EHL), plantarflexion, 5/5: hip flexors Motor examination - left side: 3/5: portfolio assistant, 4/5: deltoids, biceps, triceps, wrist flexion, wrist extension, quadriceps, tibialis Anterior, toe extension (EHL), plantarflexion, 5/5: hip flexors Detailed sensory examination: intact Reflexes: Biceps: 2+, Brachioradialis: 2+, Patella: 2+ Mental Status Examination: awake, alert, oriented to person, oriented to place, follows commands appropriately, answers questions appropriately, no aphasia, ope ns eyes to voice, makes eye contact, follows simple commands, impaired memory Cranial nerve examination: PERRL, EOMI, visual elena intact, sensory to face intact, no facial asymmetry is present, no dysarthria, hearing is intact symmetrically, flexes SCM and trapezius muscles symmetrically with full power, tongue protrudes midline, no atrophy or facial fasiculations present Cerebellar examination: performs finger to nose and heel to ye symmetrically without ataxia Tremor: right upper extremity (facial tremor present at well, at baseline per family) Results - Laboratory Findings CBC and BMP: 01/05/19 05:02 01/05/19 05:02 Abnormal lab findings: Abnormal lab results RBC 3.33 M/mcL (3.82-4.97) L 01/05/19 05:02 Hgb 10.1 g/dL (11.5-15.4) L 01/05/19 05:02 Hct 31.0 % (35.3-44.9) L 01/05/19 05:02 Lymphocytes # 0.4 K/mcL (0.6-4.6) L 01/05/19 05:02 VBG pCO2 38 mmHg (41-51) L 01/04/19 19:36 Sodium 134 mEq/L (136-145) L 01/05/19 05:02 BUN 40 mg/dL (8-23) H 01/05/19 05:02 Creatinine 1.51 mg/dL (0.60-1.20) H 01/05/19 05:02 Est GFR ( Amer) 39 (> 60) L 01/05/19 05:02 Est GFR (Non-Af Amer) 33 (> 60) L 01/05/19 05:02 Glucose 158 mg/dL (70-105) H 01/05/19 05:02 Calcium 7.9 mg/dL (8.6-10.3) L 01/05/19 05:02 Urine Blood Small (Negative) H 01/04/19 15:30 Urine Microscopic RBC 5-15 per hpf (0-3) H 01/04/19 15:30 Urine Microscopic WBC 3-5 per hpf (0-3) H 01/04/19 15:30 Ur Squamous Epith Cells Many per lpf (None-Few) H 01/04/19 15:30 Consult Discharge Plan - Plan Referrals: Nolberto Zimmer DO [Primary Care Provider] - 01/11/19 11:30 am <Jameel Rodriguez - Last Filed: 01/05/19 16:56> Date of Encounter: 01/05/19 Time of Encounter: 16:49 Assessment and Plan (1) Altered mental status Current Visit: Yes Status: Acute Again the chart was reviewed, patient was seen and examined independently. Case was discussed with the neurology resident. I agree with his assessment as outlined above. Patient had transient changes in mental status and strength which have improved significantly. She did have a MAXIMUM TEMPERATURE of 102. The differential for this is quite broad. However in the absence of headache, neck pain or nuchal rigidity. Likelihood of a central nervous system infection as process is low. No focal or lateralized deficits to suggest cerebral infarct. CT of the head was negative. We will reevaluate her tomorrow. Qualifiers: Altered mental status type: delirium Qualified Code(s): R41.0 - Disorientation, unspecified History of Present Illness HPI: Chart was reviewed, patient was seen and examined. Case was discussed with the neurology resident on service.I have personally performed a [id number] assessment of the patient and have reviewed the PA/TRAY DELIVERY AIDE note. My impressions are as follows: I agree with the neurology resident's assessment of the history of present illness as stated above. I did speak with family members swells the patient, who seems now to be back at her baseline status. She denies headache denies neck pain denies paresthesias of the legs or arms. Denies myalgias. All Systems: The remainder of the systems were reviewed and are negative Review of Systems: The balance of the systems review is negative. Physical Examination - Vital Signs Vital Signs: Initial Vital Signs Temp Pulse Resp BP Pulse Ox 100.9 F H 78 18 125/68 96 01/04/19 12:58 01/04/19 12:58 01/04/19 12:58 01/04/19 12:58 01/04/19 12:58 - Exam Exam: General Examination: *CONSTITUTIONAL: normal *GENERAL APPEARANCE OF PATIENT appears healthy and well groomed *EYES: pupils equal, round, reactive to light and accommodation, conjunctiva clear without masses or ulcerations, fundi normal. *CARDIOVASCULAR no peripheral edema, distal temperature normal, dorsalis pedis pulses normal. Refer to vital signs Musculoskeletal: *GAIT AND STATION normal, with normal Romberg testing, no abnormalities such as broad base gait or spasticity *ASSESSMENT OF MUSCLE STRENGTH IN THE UPPER AND LOWER EXTREMITIES deltoid, bicep, tricep, portfolio assistant strength, hip flexors ,anterior tibialis, dorsoflexion of the foot normal. *MUSCLE TONE IN THE UPPER AND LOWER EXTREMITIES normal. Patient does have a titubation head tremor, voice is tremulous, she has intention tremor of both upper extremities. She has no parkinsonian features. No fasciculations or atrophy identified. Neurological: *ORIENTATION to time and place *RECURRENT AND REMOTE MEMORY intact *ATTENTION AND CONCENTRATION are normal *LANGUAGE FUNCTION no significant aphasia or dysarthia was noted. *FUND OF KNOWLEDGE aware of current events, past history, vocabulary *MENTAL attention span and concentration normal. *CN II optic fundi were normal, no papilledema noted. *CN III,IV, PERRLA extraocular eye movements were full, no nystagmus and no ptosis noted. *CN V shows normal sensation and jaw opens symmetrically. *CN VII shows normal facial movement symmetrically, upper and lower bilaterally. *CN VIII shows no significant hearing loss on examination in the office. *CN IX,,X palate elevated symmetrically and normal gag reflex was noted. *CN XI normal strength in the sternocleidomastoid muscles, symmetrical shoulder shrugging. *CN XII tongue protruded in the midline, with normal strength and movement. *SENSORY EXAMINATION pinprick sensation intact, and light touch(vibration sense). *REFLEXES: deep tendon reflexes were diminished throughout, no long tract signs are present. No clonus. *CEREBELLAR TESTING normal finger to nose, heel/knee/ye, and tandem walk. *PAIN LEVEL Results - Laboratory Findings CBC and BMP: 01/05/19 05:02 01/05/19 05:02 Abnormal lab findings: Abnormal lab results RBC 3.33 M/mcL (3.82-4.97) L 01/05/19 05:02 Hgb 10.1 g/dL (11.5-15.4) L 01/05/19 05:02 Hct 31.0 % (35.3-44.9) L 01/05/19 05:02 Lymphocytes # 0.4 K/mcL (0.6-4.6) L 01/05/19 05:02 VBG pCO2 38 mmHg (41-51) L 01/04/19 19:36 Sodium 134 mEq/L (136-145) L 01/05/19 05:02 BUN 40 mg/dL (8-23) H 01/05/19 05:02 Creatinine 1.51 mg/dL (0.60-1.20) H 01/05/19 05:02 Est GFR ( Amer) 39 (> 60) L 01/05/19 05:02 Est GFR (Non-Af Amer) 33 (> 60) L 01/05/19 05:02 Glucose 158 mg/dL (70-105) H 01/05/19 05:02 Calcium 7.9 mg/dL (8.6-10.3) L 01/05/19 05:02 Venous Ioniz Calcium 1.09 mmol/L (1.15-1.35) L 01/05/19 16:25 Serum Total Protein 5.5 g/dL (6.4-8.9) L 01/05/19 05:02 Albumin 3.2 g/dL (3.5-5.7) L 01/05/19 05:02 Globulin 2.3 g/dL (2.4-3.5) L 01/05/19 05:02 Lipase 7 Units/L (11-82) L 01/05/19 05:02 Urine Blood Small (Negative) H 01/04/19 15:30 Urine Microscopic RBC 5-15 per hpf (0-3) H 01/04/19 15:30 Urine Microscopic WBC 3-5 per hpf (0-3) H 01/04/19 15:30 Ur Squamous Epith Cells Many per lpf (None-Few) H 01/04/19 15:30
--- NOTE | 2019-01-05 13:53 | Cardiology Consult Note ---
<Gregor Blake R - Last Filed: 01/05/19 14:30> Date of Encounter: 01/05/19 Time of Encounter: 13:50 Assessment and Plan (1) SIRS (systemic inflammatory response syndrome) Current Visit: Yes Status: Acute Per Cardiology: Mildly febrile upon arrival. Management per primary service. On antibiotics. (2) Fall Current Visit: Yes Status: Acute Per Cardiology: Appears to be mechanical fall. Denies any previous falls in the past one year. Does ambulate with a walker. Head CT with no acute findings. Neurology consult pending. 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 (4) Atrial fibrillation with RVR Current Visit: Yes Status: Acute Per Cardiology: Presented with A. fib in the 140s. Patient appeared to be in asymptomatic. Appears to be new onset. Troponins negative. Electrolytes stable. Systolic blood pressures in the 90s. Has chest CT pending. Previous echo showed preserved EF in 2017. On Cardizem drip at 10 mg per hour and now in sinus r hythm in the 80s. Will check echo. Will attempt to wean Cardizem drip to off and initiate Cardizem 30 mg by mouth every 6 hours and titrate as able. Regarding long-term anticoagulation, [id number] = 2. I had preliminary discussion with patient and [id number] regarding long-term anticoagulation at this point they are evaluating options. We will need addressed prior to discharge. Currently on SQ Heparin. Discussion w patient/family: The assessment and plan as outlined above was discussed with the patient and/or family members who expressed understanding and agreement. All questions were answered. Thank you for involving us in the care of your patient. Please call with any questions. History of Present Illness Consult date: 01/05/19 Consult reason: Afib RVR Chief complaint: Fall History of present illness: Ms. Kwan is a 88 year old female with hx of essential tremor. Cardiology consult for A. fib with RVR. Seen with [id number] at bedside. She reports she lives at home alone near her son and [id number]. She reports. 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 She reports getting out of bed her feet slipped on wooden floor and fell to the ground. [id number] confirms she was found alert and oriented 3 and believe she was down for about 4 hours. Patient denied any precipitating factors denied any chest pain, shortness of breath, palpitations, dizziness. Denies any previous falls in the past one year. Denies any active bleeding or blood loss. Denies any history of atrial fibrillation. Denies any history of CAD. Confirms aspirin allergy with difficulty with throat swelling. Past Med Surg Social Fam HX - Past Medical History Attestation: Yes The following information was validated with the patient. Source: patient, old records reviewed, obtained from family Medical history: arthritis, cancer, osteoporosis, other Additional medical history: tremors, cervical CA-70's Psychiatric history: no psych history - Past Surgical History Surgical History: hysterectomy, other Additional surgical history: EIC Back, platelet in left wrist 12 screws - Social History Smoking Status: Never smoker Smokeless Tobacco Status: No Alcohol use: none Drug use: none Medications and Allergies Primidone [Mysoline] 50 mg PO BID 02/10/17 [History] Acetaminophen [Tylenol Arthritis] 650 mg PO QAM 02/26/17 [History] Cholecalciferol (D-3) [Vitamin D] 5,000 unit PO DAILY 02/26/17 [History] Cyanocobalamin (Vitamin B-12) [Vitamin B12] 1,000 mcg PO DAILY 02/26/17 [History] Nitrofurantoin (BID) [Macrobid] 100 mg PO BID #14 capsule 03/06/17 [Rx] Denosumab [Prolia (For Outpatient Infusion)] 60 mg SQ [id number] 01/04/19 [History] Ferrous Sulfate [Iron] 325 mg PO DAILY 01/04/19 [History] Mirabegron [Myrbetriq] 50 mg PO DAILY 01/04/19 [History] Eldridge-3/Dha/Epa/Fish Oil [Fish Oil 1,000 mg Softgel] 1 cap PO BID 01/04/19 [History] Allergy/AdvReac Type Severity Reaction Status Date / Time aspirin Allergy Swelling Verified 01/04/19 15:54 of Lip/Tongue/Throat All Systems Review: The remainder of the systems were reviewed and are negative - Constitutional Constitutional: weakness - Cardiovascular Cardiovascular: as per HPI Physical Examination Vital Signs, Last 4 Hours Temp Pulse Resp BP Pulse Ox 01/05/19 12:16 98.1 F 75 18 97/60 01/05/19 11:08 97.8 F 72 18 92 General: Conversant, No Apparent Distress HEENT: Atraumatic, Normocephaly, Mucus Membranes Moist Neck: No JVD, Normal carotid pulses Cardiac: Reg Rate and Rhythm, Normal S1 and S2, No Murmur Lungs: Normal Breath Sounds, No Wheeze, Rales, Rhonchi Neuro: Alert and responsive, No focal deficits noted Abdomen: Soft, Non-Tender Skin: No rashes noted on visualized skin Musculoskeletal: No Chest Wall Tenderness Extremities: No Clubbing, No Cyanosis, No Edema, Normal Pulses Results 01/05/19 05:02 01/05/19 05:02 Lab Results Laboratory Tests 01/04/19 01/04/19 01/04/19 13:31 13:31 19:20 Hgb 11.2 L Hct 34.0 L Creatinine Est GFR (Non-Af Amer) Magnesium 2.0 Troponin I 0.03 0.03 TSH 1.618 01/05/19 01/05/19 05:02 05:02 Hgb 10.1 L Hct 31.0 L Creatinine 1.51 H Est GFR (Non-Af Amer) 33 L Magnesium Troponin I TSH ITS Impressions Head CT 01/04/19 14:03 IMPRESSION: No acute intracranial abnormality. Nonspecific white matter disease, likely due to chronic small vessel ischemia. Mild age-related atrophy. D/ / 01/04/2019 16:03:17 Otoniel Martinez MD / cara Interpreting Provider: Otoniel Martinez MD Chest X-Ray 01/04/19 14:04 IMPRESSION: 1. Mild bibasilar opacities, favored to represent atelectasis. 2. Borderline enlargement of the cardiac silhouette. D/ / Thomas Buckley MD / Thomas Buckley MD Interpreting Provider: Thomas Buckley MD Active Medications Acetaminophen (Tylenol) 650 mg PO Q6HR PRN PRN Reason: Fever Stop: 07/06/19 18:51 Last Admin: 01/05/19 08:50 Dose: 650 mg Heparin Sodium (Porcine) (Heparin) 5,000 unit SQ Q12HCO [facility] Stop: 07/06/19 18:31 Last Admin: 01/05/19 05:35 Dose: 5,000 unit Sodium Chloride (0.9 % Sodium Chloride) 1,000 mls @ 100 mls/hr IVC .Q10H [facility] Stop: 07/06/19 18:31 Last Admin: 01/05/19 08:42 Dose: 100 mls/hr Diltiazem HCl 50 mg/ Sodium (Chloride) 50 mls @ 12.5 mls/hr IVC CONT [facility]; Protocol Stop: 07/07/19 10:01 Last Admin: 01/05/19 11:31 Dose: 12.5 mg/hr, 12.5 mls/hr Ampicillin Sodium 2 gm/ Sodium (Chloride) 100 mls @ 200 mls/hr IVPB Q6HR [facility] Stop: 07/07/19 12:01 Last Admin: 01/05/19 13:24 Dose: 200 mls/hr Vancomycin HCl 1 each/ Sodium (Chloride) 250 mls @ 167 mls/hr IVPB RPHPROT [facility]; Protocol Stop: 07/07/19 13:01 Acyclovir 600 mg/ Dextrose 112 mls @ 100 mls/hr IVPB Q12HR [facility] Stop: 07/07/19 18:01 Ceftriaxone Sodium 2,000 mg/ (Sterile Water) 20 mls @ 600 mls/hr IVP Q12H [facility] Stop: 07/07/19 20:01 Naloxone HCl (Narcan) 0.4 mg IVP Q2M PRN PRN Reason: SEE COMMENTS Stop: 07/06/19 18:27 Pharmacy Profile Note (Patient Taking Own Medication) 1 each PO DAILY [facility] Stop: 07/07/19 09:01 Last Admin: 01/05/19 12:05 Dose: Not Given Primidone (Mysoline) 50 mg PO BID [facility] Stop: 07/07/19 09:01 Last Admin: 01/05/19 12:07 Dose: 50 mg - Imaging and Cardiology Chest Xray: report reviewed Echo: report reviewed (04/2017: Impressions: LVEF 60%. Mild concentric left ventricular hypertrophy. Mild left ventricular diastolic dysfunction. Dilated RV with normal function. Mild mitral regurgitation. Mild tricuspid regurgitation. Mild pulmonic regurgitation. No pulmonary hypertension. Left Ventricular Wall Motion: Rest Echo Findings All wall segments showed normal motion.) - EKG Interpretation EKG results cardiology: personally reviewed (Atrial fibrillation in the 140s), other (Currently sinus rhythm in the 80s on telemetry) Consult Discharge Plan - Plan Referrals: Nolberto Zimmer, [Primary Care Provider] - 01/11/19 11:30 am <Cy Miller - Last Filed: 01/05/19 16:44> Date of Encounter: 01/05/19 - Attending Attestation Patient was seen and evaluated independently by me. Findings, assessment and plan were discussed at length with patient, questions answered. Agree with nurse practitioner's/resident's documentation. Addition as follows, 88yoF without known CV history. P/w a mechanical fall and hours of on floor, and fever. Imp sepsis, PNA, GEORGINA. Consulted for new Afib RVR. Afib RVR 3am-6am with spontaneous conversion to SR on dilt drip, occasinal PVCs without pauses. No cp, dyspnea, palpitations, bleeding. BP ok, coarse BS w/o W/R/C, RR, no LE edema. A: New Afib RVR spontaneous sinus conversion within 4 hours, C score 3 Sepsis, PNA GEORGINA, Cr 1.5 eGFR <50 P: po cardizem vs BB pending TTE for EF will need A/C Cy Miller MD, PhD Assessment and Plan Discussion w patient/family: The assessment and plan as outlined above was discussed with the patient and/or family members who expressed understanding and agreement. All questions were answered. Thank you for involving us in the care of your patient. Please call with any questions. History of Present Illness History of present illness: Ms. Kwan is a 88 year old female All Systems Review: The remainder of the systems were reviewed and are negative Results 01/05/19 05:02 01/05/19 05:02 Lab Results 01/04/19 01/05/19 01/05/19 19:20 05:02 05:02 WBC 8.3 Hgb 10.1 L Hct 31.0 L Plt Count 187 Sodium 134 L Potassium 3.9 Chloride 102 Carbon Dioxide 25 BUN 40 H Creatinine 1.51 H Glucose 158 H Calcium 7.9 L Total Bilirubin 0.5 AST 17 ALT 10 Alkaline Phosphatase 41 Troponin I 0.03 Lipase 7 L TSH 1.618
[2019-01-05 14:52] LABS: Albumin 3.2 g/dL (3.5-5.7); Albumin/Globulin Ratio 1.4 (1.1-2.2); Bilirubin,Direct 0.1 mg/dL (0.0-0.2); Bilirubin,Indirect 0.4 mg/dL (0.0-1.2); Bilirubin,Total 0.5 mg/dL (0.3-1.0); Globulin 2.3 g/dL (2.4-3.5); Total Protein 5.5 g/dL (6.4-8.9)
[2019-01-05 16:28] LABS: VBG Ionized Calcium 1.09 mmol/L (1.15-1.35)
[2019-01-05] MEDS ORDERED: Naloxone 0.4 MG/ML INJ IVP PRN (17:04)
[2019-01-05] MEDS ORDERED: Acetaminophen 325 MG TABLET PO PRN (17:04)
--- NOTE | 2019-01-05 17:22 | Electrocardiograph Report ---
[address] [address] Test Date: 2019-01-05 Pat Name: Taryn Kwan Department: 113 Room: 2A15 Gender: F Return Agent: : 1930 Requested By: Edison Katz Order Number: [id number] Reading MD: Shalini Gresham Measurements Intervals [place] Rate: 141 P: NV: 0 QRS: 55 QRSD: 92 T: -60 QT: 256 QTc: 338 Interpretive Statements ATRIAL FIBRILLATION WITH RAPID VENTRICULAR RESPONSE WITH ABERRANT CONDUCTION OR VENTRICULAR PREMATURE COMPLEXES NONSPECIFIC ST & T-WAVE ABNORMALITY Electronically Signed On 01-05-2019 17:21:04 EDT by Shalini Gresham
--- NOTE | 2019-01-05 17:43 | Electrocardiograph Report ---
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
[2019-01-05] MEDS ORDERED: Acyclovir 600 MG in D5% in Water 100 ML IVPB SCH (18:00)
[2019-01-05] MEDS: Acyclovir 600 MG in D5% in Water 100 ML IVPB SCH (18:30)
[2019-01-05] MEDS ORDERED: cefTRIAXone 2,000 MG in Water for inj. (sterile) 20 ML 20 ML IVP SCH (20:00)
[2019-01-05] MEDS: Primidone 50 MG TABLET PO SCH (21:49)
[2019-01-05] MEDS: Ampicillin 2 GM in 0.9 % Sodium Chloride Mini Bag 100 ML IVPB SCH (21:50)
[2019-01-06] MEDS: Ampicillin 2 GM in 0.9 % Sodium Chloride Mini Bag 100 ML IVPB SCH ×2 (01:19→05:01)
[2019-01-06 03:10] LABS: VBG Ionized Calcium 1.12 mmol/L (1.15-1.35)
[2019-01-06] MEDS: 0.9 % Sodium Chloride 1,000 ML IVC SCH ×3 (03:21→19:58)
[2019-01-06 03:26] LABS: Basophils % 0.2 %; Calcium 7.6 mg/dL (8.6-10.3); Eosinophils # 0.4 K/mcL (0.0-0.6); Eosinophils % 6.7 %; Hemoglobin 8.6 g/dL (11.5-15.4); Immature Granulocytes % 0.4 % (0-4); Lymphocytes # 1.3 K/mcL (0.6-4.6); Lymphocytes % 23.4 %; Mean Corpuscular HGB Conc 31.9 g/dL (31.6-35.5); Mean Corpuscular Hemoglobin 30.4 pg (28.0-33.3); Mean Corpuscular Volume 95.4 fL (83.0-100.0); Monocytes # 0.4 K/mcL (0.0-1.3); Monocytes % 7.2 %; Platelet Count 166 K/mcL (140-400); Potassium 3.3 mEq/L (3.5-5.1); Red Blood Count 2.83 M/mcL (3.82-4.97); Red Cell Distribution Width 12.9 % (11.5-14.5); Segmented Neutrophils % 62.1 %
[2019-01-06 03:45] LABS: Neutrophils # 3.4 K/mcL (1.6-8.9)
[2019-01-06 04:11] LABS: Platelet Estimate Normal (Normal); Reactive Lymphocytes Present (Not Present)
[2019-01-06] MEDS ORDERED: Ampicillin 2 GM VIAL ONE (04:54)
[2019-01-06] MEDS: Acyclovir 600 MG in D5% in Water 100 ML IVPB SCH (05:03)
[2019-01-06] MEDS: *HR* Heparin 5,000 UNIT/ML VIAL SQ SCH ×2 (05:03→18:08)
[2019-01-06] MEDS ORDERED: cefTRIAXone 2,000 MG in Water for inj. (sterile) 20 ML 20 ML IVP SCH ×2 (07:00→09:00)
--- NOTE | 2019-01-06 08:09 | Cardiology Progress Note ---
Date of Encounter: 01/06/19 Time of Encounter: 08:10 Assessment and Plan (1) SIRS (systemic inflammatory response syndrome) Current Visit: Yes Status: Acute Per Cardiology: CT results concerning for pneumonia. Management per primary service. On antibiotics. (2) Fall Current Visit: Yes Status: Acute Per Cardiology: Appears to be mechanical fall. Denies any previous falls in the past one year. Does ambulate with a walker. Head CT with no acute findings. Seen by Neurology. Qualifiers: Encounter type: subsequent encounter Qualified Code(s): W19.XXXD - Unspecified fall, subsequent encounter (3) GEORGINA (acute kidney injury) Current Visit: Yes Status: Acute Per Cardiology: Appears have history of mild CKD stage IIIa, currently stage IIIB. (4) Atrial fibrillation with RVR Current Visit: Yes Status: Acute Per Cardiology: Presented with A. fib in the 140s. Patient appeared to be asymptomatic. Appears to be new onset. Troponins negative. Echo pending. Was SR yesterday. Now A. fib in the 90s to 100s. Cardizem drip now off. We will convert to Cardizem CD 120 mg by mouth daily. Systolic blood pressure stable. Consider titration of calcium channel monique if needed. Echo pending. Regarding long-term anticoagulation, [id number] = 3. I had discussion with patient and son and they are interested in DOAC-- we will perform collier check for Eliquis 2.5mg (age over 80 and creat over 1.5). However, H&H are downward trend from yesterday on subcutaneous heparin. Continue to monitor. Discussion w patient/family: The assessment and plan as outlined above was discussed with the patient and/or family members who expressed understanding and agreement. All questions were answered. Thank you for involving us in the care of your patient. Please call with any questions. Subjective Principal diagnosis: Afib Objective Vital Signs, Last 4 Hours Temp Pulse Resp BP Pulse Ox 01/06/19 07:52 97.6 F 82 17 107/59 90 01/06/19 04:39 98.3 F 61 15 140/65 95 General: Conversant, No Apparent Distress HEENT: Atraumatic, Normocephaly, Mucus Membranes Moist Neck: No JVD, Normal carotid pulses Cardiac: No Murmur, Other (Irregularly irregular) Lungs: Normal Breath Sounds, No Wheeze, Rales, Rhonchi Neuro: Alert and responsive, No focal deficits noted Abdomen: Soft, Non-Tender Skin: No rashes noted on visualized skin Musculoskeletal: No Chest Wall Tenderness Extremities: No Clubbing, No Cyanosis, No Edema, Normal Pulses Results 01/06/19 02:39 01/06/19 02:39 Lab Results Laboratory Tests 01/04/19 01/04/19 01/04/19 13:31 13:31 19:20 Hgb 11.2 L Hct 34.0 L Potassium Creatinine Est GFR (Non-Af Amer) Troponin I 0.03 0.03 01/06/19 01/06/19 02:39 02:39 Hgb 8.6 L D Hct 27.0 L Potassium 3.3 L Creatinine 1.60 H Est GFR (Non-Af Amer) 30 L Troponin I Impressions Chest CT 01/05/19 13:29 IMPRESSION: 1. Focal consolidation in the peripheral left upper lobe is suspicious for pneumonia. Bronchial wall thickening suggests bronchitis. 2. Small pleural effusions with adjacent compressive atelectasis. 3. Scattered small nodules throughout both lungs measuring up to 5 mm. If patient has known cancer, these could be metastatic. Otherwise these are non-specific. Consider follow-up low-dose chest CT in 12 months if patient is high risk for lung cancer (2017 Fleischner Society guidelines). 4. Large hiatal hernia with intrathoracic stomach. 5. Extensive atherosclerotic disease including the coronary arteries. RECOMMENDATIONS: Fleischner Society guidelines for follow-up and management of incidentally detected pulmonary nodules: Multiple Solid Nodules: Nodule size less than 6 mm In a low-risk patient, no routine follow-up. In a high-risk patient, optional CT at 12 months. - Low risk patients include individuals with minimal or absent history of smoking and other known risk factors. - High risk patients include individuals with a history or smoking or known risk factors. Radiology 2017 http://pubs.rsna.org/doi/full/10.1148/radiol.0991253054 D/ / Shay Henson MD / Shay Henson MD Interpreting Provider: Shay Henson MD Abdomen/Pelvis CT 01/05/19 14:42 IMPRESSION: No acute disease. Incidental findings as noted above including small bilateral pleural effusions and large hiatal hernia. Increased stool. D/ / Shawn Hogan MD / Shawn Hogan MD Interpreting Provider: Shawn Hogan MD Active Medications Acetaminophen (Tylenol) 650 mg PO Q6HR PRN PRN Reason: Fever Stop: 07/06/19 18:51 Last Admin: 01/05/19 21:48 Dose: 650 mg Diltiazem HCl (Cardizem) 30 mg PO Q6HR [facility] Stop: 07/07/19 14:26 Last Admin: 01/06/19 05:02 Dose: 30 mg Heparin Sodium (Porcine) (Heparin) 5,000 unit SQ Q12HCO [facility] Stop: 07/06/19 18:31 Last Admin: 01/06/19 05:03 Dose: 5,000 unit Sodium Chloride (0.9 % Sodium Chloride) 1,000 mls @ 100 mls/hr IVC .Q10H [facility] Stop: 07/06/19 18:31 Last Admin: 01/06/19 06:29 Dose: 100 mls/hr Diltiazem HCl 50 mg/ Sodium (Chloride) 50 mls @ 12.5 mls/hr IVC CONT [facility]; Protocol Stop: 07/07/19 10:01 Last Admin: 01/05/19 18:11 Dose: Not Given Acyclovir 600 mg/ Dextrose 112 mls @ 100 mls/hr IVPB Q12HR [facility] Stop: 07/07/19 18:01 Last Infusion: 01/06/19 06:27 Dose: Infused Vancomycin HCl 1 each/ Sodium (Chloride) 250 mls @ 167 mls/hr IVPB RPHPROT [facility]; Protocol Stop: 07/07/19 13:01 Ceftriaxone Sodium 2,000 mg/ (Sterile Water) 20 mls @ 600 mls/hr IVP Q12H [facility] Stop: 07/08/19 07:01 Ampicillin Sodium 2 gm/ Sodium (Chloride) 100 mls @ 200 mls/hr IVPB Q6HR [facility] Stop: 07/08/19 12:01 Naloxone HCl (Narcan) 0.4 mg IVP Q2M PRN PRN Reason: SEE COMMENTS Stop: 07/06/19 18:27 Pharmacy Profile Note (Patient Taking Own Medication) 1 each PO DAILY [facility] Stop: 07/07/19 09:01 Primidone (Mysoline) 50 mg PO BID [facility] Stop: 07/07/19 09:01 Last Admin: 01/05/19 21:49 Dose: 50 mg - Imaging and Cardiology Echo: pending Consult Discharge Plan - Plan Referrals: Nolberto Zimmer DO [Primary Care Provider] - 01/11/19 11:30 am
[2019-01-06] MEDS ORDERED: Aminoglycoside Consult 1 EACH MC ONE (08:16)
--- NOTE | 2019-01-06 08:21 | Neurology Progress Note ---
<Ricky Medina - Last Filed: 01/06/19 10:35> Date of Encounter: 01/06/19 Time of Encounter: 09:30 Assessment and Plan (1) Altered mental status Current Visit: Yes Status: Acute - Family and patient both report weakness as well as disorientation and confusion x 2 days - Etiology unclear at this time however differential is broad and includes infectious, dehydration, fever induced - She does meet sirs criteria as below - Today, patient does appear to be resolved and is at baseline per patient and family. - Infectious etiology also unclear with UA nonsuggestive infection and chest x- ray does not show obvious consolidation - CT scan of chest, abdomen, pelvis obtained yesterday and shows possible pneumonia, otherwise unremarkable. - Head CT in the emergency department shows no acute process with chronic aging changes - Neuro exam is non focal with no defecits noted, weakness has improved. No nuchal rigidity noted. - Fevers have subsided. - Initially started on Rocephin and azithromycin to cover for both UTI as well as possible community acquired pneumonia - Antibiotics escalated today to acyclovir, vancomycin, Rocephin, ampicillin, day #2 Plan - At this time, patient has reportedly improved and is near baseline per family - We will discontinue acyclovir this morning, further antibiotics per primary team. Unlikely OFFICE EXECUTIVE source at this time - Unknown etiology at this time but it is appearing less likely to be neurologic given lack of headache or neck pain - Recommend continuing supportive care - At this time, there is no indication for lumbar puncture. - There is a possibility for encephalitis however this is unlikely at this time given alternative etiologies and lack of clinical evidence. Patient is clinic ally improved and we will expect her to be clinically more sick with a OFFICE EXECUTIVE infection were present. Qualifiers: Altered mental status type: delirium Qualified Code(s): R41.0 - Disorientation, unspecified (2) SIRS (systemic inflammatory response syndrome) Current Visit: Yes Status: Acute - Previously met 2/4 sirs criteria with fevers with a MAXIMUM TEMPERATURE of 102 as well as tachycardia in the 90s - No evidence of leukocytosis and lactic acid within normal limits at 1.8 - Source unclear at this time, unlikely meningitis given physical exam however encephalitis is still a possibility. - Imaging does not suggest pneumonia etiology - Alternative etiologies of fever and tachycardia include malignancy, dehydration, other infectious process, medication induced - Antibiotics started per primary team including ampicillin, ceftriaxone, vancomycin Plan - Clinically patient improving - No definite neurologic source at this time. - Will continue to monitor - Management as above (3) Essential tremor Current Visit: Yes Status: Chronic - Chronic and at baseline per family - Diagnosed by Dr. Wolf - Well controlled on home primidone, will continue Subjective Principal diagnosis: Weakness, altered mental status Interval history: Patient was seen and examined at bedside this morning. Family is with her and both agree that she is returned to her baseline mental status. Her weakness is improved and she is continuing to deny any symptoms of fevers, chills, headache, neck pain, focal deficits, numbness, tingling. No overnight events. Elevated temperature of 100.1 noted yesterday afternoon. Objective - Constitutional Vitals: Temp Pulse Resp BP Pulse Ox 97.6 F 82 17 107/59 90 01/06/19 07:52 01/06/19 07:52 01/06/19 07:52 01/06/19 07:52 01/06/19 07:52 General appearance: Present: cooperative, A&O X 2, pleasant, no acute distress - Head Head exam: Present: atraumatic, normal inspection, normocephalic - Neurological Exam Sensorimotor examination: Present: intact Motor Examination: Present: grossly full strength in all extremities Motor examination - right side: 4/5: deltoids, biceps, triceps, electrical maintenance supervisor, tibialis Anterior, quadriceps, toe extension (EHL), plantarflexion, 5/5: hip flexors Motor examination - left side: 4/5: deltoids, biceps, triceps, wrist flexion, wrist extension, electrical maintenance supervisor, quadriceps, tibialis Anterior, toe extension (EHL), plantarflexion, 5/5: hip flexors Sensation intact: Present: intact Reflexes: Biceps: 2+, Patella: 2+ Mental Status Examination: Present: awake, alert, oriented to person, oriented to place, follows commands appropriately, answers questions appropriately, no aphasia, opens eyes to voice, makes eye contact, follows simple commands Cranial nerve examination: Present: PERRL, EOMI, visual elena intact, sensory to face intact, no facial asymmetry is present, no dysarthria, hearing is intact symmetrically, flexes SCM and trapezius muscles symmetrically with full power, tongue protrudes midline, no atrophy or facial fasiculations present Cerebellar examination: Present: performs finger to nose and heel to ye symmetrically without ataxia Tremor: right upper extremity (facial tremor present at well, at baseline per family) Results - Laboratory Findings CBC and BMP: 01/06/19 02:39 01/06/19 02:39 Abnormal lab findings: Abnormal lab results RBC 2.83 M/mcL (3.82-4.97) L 01/06/19 02:39 Hgb 8.6 g/dL (11.5-15.4) L D 01/06/19 02:39 Hct 27.0 % (35.3-44.9) L 01/06/19 02:39 Reactive Lymphocytes Present (Not Present) A 01/06/19 02:39 VBG pCO2 38 mmHg (41-51) L 01/04/19 19:36 Potassium 3.3 mEq/L (3.5-5.1) L 01/06/19 02:39 BUN 42 mg/dL (8-23) H 01/06/19 02:39 Creatinine 1.60 mg/dL (0.60-1.20) H 01/06/19 02:39 Est GFR ( Amer) 37 (> 60) L 01/06/19 02:39 Est GFR (Non-Af Amer) 30 (> 60) L 01/06/19 02:39 Glucose 116 mg/dL (70-105) H 01/06/19 02:39 Calcium 7.6 mg/dL (8.6-10.3) L 01/06/19 02:39 Venous Ioniz Calcium 1.12 mmol/L (1.15-1.35) L 01/06/19 03:08 Serum Total Protein 5.5 g/dL (6.4-8.9) L 01/05/19 05:02 Albumin 3.2 g/dL (3.5-5.7) L 01/05/19 05:02 Globulin 2.3 g/dL (2.4-3.5) L 01/05/19 05:02 Lipase 7 Units/L (11-82) L 01/05/19 05:02 Urine Blood Small (Negative) H 01/04/19 15:30 Urine Microscopic RBC 5-15 per hpf (0-3) H 01/04/19 15:30 Urine Microscopic WBC 3-5 per hpf (0-3) H 01/04/19 15:30 Ur Squamous Epith Cells Many per lpf (None-Few) H 01/04/19 15:30 Consult Discharge Plan - Plan Referrals: Nolberto Zimmer DO [Primary Care Provider] - 01/11/19 11:30 am <Jameel Rodriguez - Last Filed: 01/06/19 15:10> Date of Encounter: 01/06/19 Assessment and Plan (1) Altered mental status Current Visit: Yes Status: Acute Chart was reviewed the patient was seen and examined. Case was discussed with the neurology resident on service.I have personally performed a [id number] assessment of the patient and have reviewed the PA/BOTTLER HELPER note. My impressions are as follows: Neurologic workup was completely negative. I do not feel that the initial altered mental status was due to a primary neurologic etiology. Perhaps urinary tract infection versus pneumonia. In any regard she is back to her normal baseline. The splint neurology will sign off. It would be our pleasure to follow up with her in the outpatient clinic regarding further management of her tremors. Qualifiers: Altered mental status type: delirium Qualified Code(s): R41.0 - Disorientation, unspecified Subjective Interval history: Chart was reviewed, patient was seen and examined. Case was discussed with the neurology resident on service. Apparently patient had a bit of sundowning overnight however is now back to her normal baseline. Neurologic workup is unrevealing. She does still have essential tremors. She is in no acute distress. Objective - Constitutional Vitals: Temp Pulse Resp BP Pulse Ox 98.3 F 122 19 106/64 91 01/06/19 10:57 01/06/19 10:57 01/06/19 10:57 01/06/19 10:57 01/06/19 10:57 Exam: Exam: General Examination: *CONSTITUTIONAL: normal *GENERAL APPEARANCE OF PATIENT appears healthy and well groomed *EYES: pupils equal, round, reactive to light and accommodation, conjunctiva clear without masses or ulcerations, fundi normal. *CARDIOVASCULAR no peripheral edema, distal temperature normal, dorsalis pedis pulses normal. Refer to vital signs Musculoskeletal: *GAIT AND STATION normal, with normal Romberg testing, no abnormalities such as broad base gait or spasticity *ASSESSMENT OF MUSCLE STRENGTH IN THE UPPER AND LOWER EXTREMITIES deltoid, bicep, tricep, electrical maintenance supervisor strength, hip flexors ,anterior tibialis, dorsoflexion of the foot normal. *MUSCLE TONE IN THE UPPER AND LOWER EXTREMITIES normal. Patient does have a titubation head tremor, voice is tremulous, she has intention tremor of both upper extremities. She has no parkinsonian features. No fasciculations or atrophy identified. Neurological: *ORIENTATION to time and place *RECURRENT AND REMOTE MEMORY intact *ATTENTION AND CONCENTRATION are normal *LANGUAGE FUNCTION no significant aphasia or dysarthia was noted. *FUND OF KNOWLEDGE aware of current events, past history, vocabulary *MENTAL attention span and concentration normal. *CN II optic fundi were normal, no papilledema noted. *CN III,IV, PERRLA extraocular eye movements were full, no nystagmus and no ptosis noted. *CN V shows normal sensation and jaw opens symmetrically. *CN VII shows normal facial movement symmetrically, upper and lower bilaterally. *CN VIII shows no significant hearing loss on examination in the office. *CN IX,,X palate elevated symmetrically and normal gag reflex was noted. *CN XI normal strength in the sternocleidomastoid muscles, symmetrical shoulder shrugging. *CN XII tongue protruded in the midline, with normal strength and movement. *SENSORY EXAMINATION pinprick sensation intact, and light touch(vibration sense). *REFLEXES: deep tendon reflexes were diminished throughout, no long tract signs are present. No clonus. *CEREBELLAR TESTING normal finger to nose, heel/knee/ye, and tandem walk. *PAIN LEVEL 0 Results - Laboratory Findings CBC and BMP: 01/06/19 02:39 01/06/19 02:39 Abnormal lab findings: Abnormal lab results RBC 2.83 M/mcL (3.82-4.97) L 01/06/19 02:39 Hgb 8.6 g/dL (11.5-15.4) L D 01/06/19 02:39 Hct 27.0 % (35.3-44.9) L 01/06/19 02:39 Reactive Lymphocytes Present (Not Present) A 01/06/19 02:39 VBG pCO2 38 mmHg (41-51) L 01/04/19 19:36 Potassium 3.3 mEq/L (3.5-5.1) L 01/06/19 02:39 BUN 42 mg/dL (8-23) H 01/06/19 02:39 Creatinine 1.60 mg/dL (0.60-1.20) H 01/06/19 02:39 Est GFR ( Amer) 37 (> 60) L 01/06/19 02:39 Est GFR (Non-Af Amer) 30 (> 60) L 01/06/19 02:39 Glucose 116 mg/dL (70-105) H 01/06/19 02:39 Calcium 7.6 mg/dL (8.6-10.3) L 01/06/19 02:39 Venous Ioniz Calcium 1.12 mmol/L (1.15-1.35) L 01/06/19 03:08 Serum Total Protein 5.5 g/dL (6.4-8.9) L 01/05/19 05:02 Albumin 3.2 g/dL (3.5-5.7) L 01/05/19 05:02 Globulin 2.3 g/dL (2.4-3.5) L 01/05/19 05:02 Lipase 7 Units/L (11-82) L 01/05/19 05:02 Urine Blood Small (Negative) H 01/04/19 15:30 Urine Microscopic RBC 5-15 per hpf (0-3) H 01/04/19 15:30 Urine Microscopic WBC 3-5 per hpf (0-3) H 01/04/19 15:30 Ur Squamous Epith Cells Many per lpf (None-Few) H 01/04/19 15:30
--- NOTE | 2019-01-06 08:21 | Internal Med Progress Note ---
Hospitalist Progress Note - Encounter Date of Encounter: 01/06/19 Time of Encounter: 08:19 - Subjective Interval History: Ms. Kwan is an 88-year-old female who was admitted to the hospital for workup of weakness and management of GEORGINA. review of overnight vital signs shows that patient has been afebrile since yesterday afternoon. On evaluation, patient looks improved, and is no longer requiring supplemental oxygen therapy. She reports feeling better today, and states that she feels like she is getting stronger. She denies any acute complaints or concerns, and nursing staff reports no acute overnight events. - Exam Vitals: Temp Pulse Resp BP Pulse Ox 97.6 F 82 17 107/59 90 01/06/19 07:52 01/06/19 07:52 01/06/19 07:52 01/06/19 07:52 01/06/19 07:52 Exam: GENERAL: Elderly adult female lying in bed with obvious rigors. HEENT: Atraumatic and normocephalic. Nasal cannula in place. CARDIOVASCULAR: Regular rate and rhythm. No murmurs, gallops, or rubs noted. RESPIRATORY: Clear to auscultation bilaterally. Chest rises and falls symmetrically without accessory muscle use. GASTROINTESTINAL: Abdomen is soft, nontender, nondistended. Bowel sounds present 4 quadrants. EXTREMITIES: No clubbing, cyanosis, or edema. SKIN: Warm, dry, and intact. NEUROLOGIC: Patient is cooperative with exam and answers questions appropriately. No apparent focal deficits. PSYCHIATRIC: Appropriate mood and affect. - Assessment and Plan (1) Sepsis Current Visit: Yes Status: Resolved Assessment and Plan: Improving. Suspect secondary to UTI versus pneumonia versus meningitis/encephalitis. Patient initially met SIRS criteria with heart rate greater than 90 bpm, initial temperature 100.9, and possible infectious source. Patient did receive 1000 mg Tylenol in the emergency department; however, temperature was noted to be further elevated at 101.0 soon after arriving to the nursing floor. Patient recently completed course of antibiotics for urinary tract infection. Urinalysis performed in the ED appears unremarkable; however, due to recent infection, we will obtain a urine culture as well. Chest x-ray demonstrated mild bibasilar opacities. Flu swab performed in the emergency department was negative. Patient has continued to spike intermittent fevers this morning, with maximum temperature of 102.6 despite antibiotic therapy. Respiratory infectious panel was negative, and lactic acid was found to be within normal limits. Concern for possible meningitis/encephalitis in light of continued fevers, and family reports of continued intermittent confusion/somnolence. Chest CT performed this afternoon was significant for presence of focal con solidation in the peripheral left upper lobe suspicious for pneumonia, as well as bronchial wall thickening suggestive of bronchitis. Patient was also noted to have small pleural effusions with adjacent compressive atelectasis, large hiatal hernia with intrathoracic stomach, and extensive athero-sclerotic disease including the coronary arteries. CT of the abdomen and pelvis demonstrated no acute disease. Increased stool was noted, as well as several incidental findings. Review of vital signs this morning shows that patient has remained afebrile since yesterday afternoon. Patient appears to be clinically improved, and his back to baseline mental status per family members present at the bedside. Plan: - Blood and urine culture results pending. - Per neurology, low suspicion for meningitis; therefore, no indication for lumbar puncture at this time. Acyclovir discontinued. - Discontinue ampicillin, ceftriaxone, and vancomycin. Start levofloxacin 750mg Q48H for likely pneumonia. - Urine legionella and strep pneumo antigens pending. (2) Community acquired pneumonia Current Visit: Yes Status: Acute Assessment and Plan: Infectious organism unknown. Plan as above. (3) GEORGINA (acute kidney injury) Current Visit: Yes Status: Acute Assessment and Plan: Likely secondary to dehydration. Serum creatinine on initial laboratory studies was elevated at 1.35. Patient's baseline appears to be around 1.0. Morning laboratory studies demonstrated worsening serum creatinine of 1.60 despite continued IV fluid hydration. Suspect that use of vancomycin likely contributed to slight worsening of renal function as evidenced by laboratory studies today. - Continue IV fluids. - Repeat in trend serum creatinine with morning laboratory studies. - Retroperitoneal ultrasound pending. - Consider nephrology consult if serum creatinine continues to worsen or if ultrasound demonstrates significant findings. (4) Atrial fibrillation with RVR Current Visit: Yes Status: Acute Assessment and Plan: New onset of atrial fibrillation with RVR. Patient is currently receiving diltiazem 60mg Q6H per cardiology recommendations. Echocardiogram performed this afternoon demonstrated LVEF 65%, with mild asymmetric basal septal hypertrophy noted. Severe biatrial enlargement, mild mitral regurgitation, and mild pulmonary hypertension were also noted, as well as a small pericardial effusion along the right atrium; however, there is no echocardiographic evidence of tamponade. - Continue telemetry monitoring and management per cardiology. (5) Weakness Current Visit: Yes Status: Acute Assessment and Plan: Likely secondary to pneumonia. - Continue IVF hydration with 0.9% NaCl. - Consults placed to physical and occupational therapy for evaluation. - Continue antibiotic therapy for pneumonia as above. (6) Fall Current Visit: Yes Status: Acute Assessment and Plan: Likely secondary to weakness. Patient was reportedly found on the floor at home at approximately 11 AM. Per her son, patient appeared to have been in the process of getting dressed and making her bed when she fell. Patient denies any pain or discomfort at this time. Head CT demonstrated no acute intracranial abnormalities. - Plan as above. (7) Essential tremor Current Visit: Yes Status: Chronic Assessment and Plan: - Continue home medication of primidone 50mg BID. (8) Hyperglycemia Current Visit: Yes Status: Resolved (9) Lung nodule, multiple Current Visit: Yes Status: Acute Assessment and Plan: Chest CT demonstrated scattered small nodules throughout both lungs measuring up to 5 mm. Per radiology report, could be metastatic in the setting of known cancer; however, nonspecific otherwise. - Recommend repeat CT in 12 months to ensure resolution of these nodules. (10) DVT prophylaxis Current Visit: Yes Status: Acute Assessment and Plan: - Heparin SQ. - Time Spent with Patient Total time spent is greater than 50% in coordination of care (as documented) at patient's floor/unit and/or counseling patient: Internal Medicine: Result - Labs CBC & Chem 7: 01/06/19 02:39 01/06/19 02:39 Labs: Short CBC 01/06/19 Range/Units 02:39 WBC 5.4 (4.3-11.1) K/mcL Hgb 8.6 L D (11.5-15.4) g/dL Hct 27.0 L (35.3-44.9) % Plt Count 166 (140-400) K/mcL Neutrophils # 3.4 (1.6-8.9) K/mcL BMP 01/05/19 01/06/19 05:02 02:39 Sodium 134 L 136 Potassium 3.9 3.3 L Chloride 102 105 Carbon Dioxide 25 23 BUN 40 H 42 H Creatinine 1.51 H 1.60 H Glucose 158 H 116 H Calcium 7.9 L 7.6 L Liver Function 01/05/19 Range/Units 05:02 Total Bilirubin 0.5 (0.3-1.0) mg/dL Direct Bilirubin 0.1 (0.0-0.2) mg/dL AST 17 (13-39) Units/L ALT 10 (7-52) Units/L Alkaline Phosphatase 41 (34-104) Units/L Albumin 3.2 L (3.5-5.7) g/dL - Impressions Impressions Chest CT 01/05/19 13:29 IMPRESSION: 1. Focal consolidation in the peripheral left upper lobe is suspicious for pneumonia. Bronchial wall thickening suggests bronchitis. 2. Small pleural effusions with adjacent compressive atelectasis. 3. Scattered small nodules throughout both lungs measuring up to 5 mm. If patient has known cancer, these could be metastatic. Otherwise these are non-specific. Consider follow-up low-dose chest CT in 12 months if patient is high risk for lung cancer (2017 Fleischner Society guidelines). 4. Large hiatal hernia with intrathoracic stomach. 5. Extensive atherosclerotic disease including the coronary arteries. RECOMMENDATIONS: Fleischner Society guidelines for follow-up and management of incidentally detected pulmonary nodules: Multiple Solid Nodules: Nodule size less than 6 mm In a low-risk patient, no routine follow-up. In a high-risk patient, optional CT at 12 months. - Low risk patients include individuals with minimal or absent history of smoking and other known risk factors. - High risk patients include individuals with a history or smoking or known risk factors. Radiology 2017 http://pubs.rsna.org/doi/full/10.1148/radiol.[email or web address] D/ / Shay Henson MD / Shay Henson MD Interpreting Provider: Shay Henson MD Abdomen/Pelvis CT 01/05/19 14:42 IMPRESSION: No acute disease. Incidental findings as noted above including small bilateral pleural effusions and large hiatal hernia. Increased stool. D/ / Shawn Hogan MD / Shawn Hogan MD Interpreting Provider: Shawn Hogan MD Consult Discharge Plan - Plan Referrals: Nolberto Zimmer DO [Primary Care Provider] - 01/11/19 11:30 am (1) Sepsis Qualifiers: Sepsis type: sepsis due to unspecified organism Qualified Code(s): A41.9 - Sepsis, unspecified organism (2) Community acquired pneumonia Qualifiers: Laterality: left Lung location: upper lobe of lung Qualified Code(s): J18.1 - Lobar pneumonia, unspecified organism (6) Fall Qualifiers: Encounter type: subsequent encounter Qualified Code(s): W19.XXXD - Unspecified fall, subsequent encounter
[2019-01-06] MEDS ORDERED: Diltiazem CD (24hr) 120 MG CAPSULE PO SCH (09:00)
--- NOTE | 2019-01-06 09:21 | Event Note ---
Date of Encounter: 01/06/19 Time of Encounter: 09:12 Patient seen and examined. I agree with the progress note as written by the resident physician. Seems to be very awake and A/O x2. Patient presents with weakness and altered mental status. MAXIMUM TEMPERATURE up to 102.6 while here. Being treated for suspected meningitis/encephalitis with ampicillin, ceftriaxone, and vancomycin. Neurology is following. CT head was unremarkable. Had a CT chest which showed focal consolidation in the peripheral left upper lobe suspicious for pneumonia. There was also mention of scattered small nodules throughout both lungs measuring up to 5 mm. Follow-up with CT in 12 months was recommended. Was not to be in A. fib with RVR on initial presentation but now seems to be rate controlled. At some point was on IV Cardizem drip but has been switched to oral. Also being evaluated to start Eliquis. Also noted to have acute kidney injury GEN: NAD CVS: RRR. S1, S2, No m/r/g RESP: Diminished with scattered rhonchi ABD: Soft, NT, ND, +BS EXT: No edema. 2+ DP. No rashes NEURO: Nonfocal. A/O x2 At this point I believe we should probably just treat pneumonia Will discuss with neurology see if there is really need for lumbar puncture. I believe we can do without for now. Can de-escalate antibiotics down to possibly Levaquin Kidney function continues to worsen slowly. Not sure if urine output has been documented accurately. With bladder scan and get a kidney ultrasound as well. Patient is on IV fluids while she is here and kidney function continued to worsen Continue Cardizem oral. Cardiology seeing Being checked for Eliquis for anticoagulation. drop in H/H likely dilutional
[2019-01-06] MEDS: Primidone 50 MG TABLET PO SCH ×2 (09:37→20:01)
[2019-01-06] MEDS: Mirabegron [Myrbetriq] 50 MG PO SCH (09:38)
[2019-01-06] MEDS: Levofloxacin 750 MG/150 ML 750 MG/150 ML BAG IVPB SCH (11:34)
--- NOTE | 2019-01-06 11:43 | Event Note ---
Date of Encounter: 01/06/19 Time of Encounter: 11:40 - Cardiology Event Note Remains A. fib the 90s to 100s currently. We will consider titration calcium channel monique. Echo results noted: Impressions: LVEF 65%. Mild asymmetric basal septal hypertrophy. No LVOT obstruction. Indeterminate diastolic function. Normal right ventricular structure and function. Severe bi-atrial enlargement. Mild mitral regurgitation. Mild pulmonary hypertension. There is a small pericardial effusion present along the right atrium. There is no echocardiographic evidence of tamponade. No evidence of PFO with agitated saline contrast. Left Ventricular Wall Motion: Rest Echo Findings All wall segments showed normal motion. Parnell check for Process Data Control $98/month. Discussed with Dr. Miller, recs for AC assuming PT eval stable and H&H remains stable tomorrow. Additionally, ok to proceed AC with Primidone (reviewed with Dr. Miller). Continue subcutaneous heparin for now. Patient and family agreeable to DOAC tomorrow if clinically appropriate. Cardiology will continue to follow and monitor heart rate and decide if to initiate DOAC.
[2019-01-06] MEDS ORDERED: Ampicillin 2 GM in 0.9 % Sodium Chloride Mini Bag 100 ML IVPB SCH (12:00)
[2019-01-06] MEDS: dilTIAZem HCl 60 MG TABLET PO SCH ×2 (14:02→18:08)
[2019-01-07] MEDS: dilTIAZem HCl 60 MG TABLET PO SCH ×2 (00:13→05:38)
[2019-01-07] MEDS: *HR* Heparin 5,000 UNIT/ML VIAL SQ SCH (05:39)
--- NOTE | 2019-01-07 07:39 | Cardiology Progress Note ---
Date of Encounter: 01/07/19 Time of Encounter: 07:40 Assessment and Plan (1) SIRS (systemic inflammatory response syndrome) Current Visit: Yes Status: Acute Per Cardiology: CT results concerning for pneumonia. Management per primary service. On antibiotics. (2) Atrial fibrillation with RVR Current Visit: Yes Status: Acute Per Cardiology: Now sinus rhythm in the 80s. Will convert Cardizem CD to 240 mg by mouth daily. Echo with preserved EF. Regarding long-term anticoagulation, [id number] = 3. H&H appears stable. Patient and family agreeable to proceed with Eliquis 2.5mg PO BID. Will discontinue SQ heparin. Cardiology signoff, reconsult as needed, follow-up arranged. All questions answered. Discussion w patient/family: The assessment and plan as outlined above was discussed with the patient and/or family members who expressed understanding and agreement. All questions were answered. Thank you for involving us in the care of your patient. Please call with any questions. Subjective Principal diagnosis: Afib Interval history: Denies any new concerns or complaints overnight. Denies any chest pain or palpitations. Reports baseline shortness of breath at rest. Denies any active bleeding or blood loss. Reports plans to go to [facility] for rehabilitation for 2 weeks. Objective Vital Signs, Last 4 Hours Temp Pulse Resp BP Pulse Ox 01/07/19 06:46 98.4 F 88 18 132/67 95 General: Conversant, No Apparent Distress HEENT: Atraumatic, Normocephaly, Mucus Membranes Moist Neck: No JVD, Normal carotid pulses Cardiac: Reg Rate and Rhythm, Normal S1 and S2, No Murmur Lungs: Normal Breath Sounds, No Wheeze, Rales, Rhonchi Neuro: Alert and responsive, No focal deficits noted Abdomen: Soft, Non-Tender Skin: No rashes noted on visualized skin Musculoskeletal: No Chest Wall Tenderness Extremities: No Clubbing, No Cyanosis, No Edema, Normal Pulses Results 01/07/19 07:50 01/07/19 07:50 Laboratory Tests 01/07/19 07:50 Hgb 9.7 L Hct 29.6 L Consult Discharge Plan - Plan Referrals: Nolberto Zimmer DO [Primary Care Provider] - 01/11/19 11:30 am
--- NOTE | 2019-01-07 07:47 | Internal Med Progress Note ---
Hospitalist Progress Note - Encounter Date of Encounter: 01/07/19 Time of Encounter: 07:47 - Exam Vitals: Temp Pulse Resp BP Pulse Ox 98.4 F 88 18 132/67 95 01/07/19 06:46 01/07/19 06:46 01/07/19 06:46 01/07/19 06:46 01/07/19 06:46 - Assessment and Plan (1) Sepsis Current Visit: Yes Status: Resolved (2) Community acquired pneumonia Current Visit: Yes Status: Acute (3) GEORGINA (acute kidney injury) Current Visit: Yes Status: Acute (4) Atrial fibrillation with RVR Current Visit: Yes Status: Acute (5) Weakness Current Visit: Yes Status: Acute (6) Fall Current Visit: Yes Status: Acute (7) Essential tremor Current Visit: Yes Status: Chronic (8) Hyperglycemia Current Visit: Yes Status: Resolved (9) Lung nodule, multiple Current Visit: Yes Status: Acute (10) DVT prophylaxis Current Visit: Yes Status: Acute - Time Spent with Patient Total time spent is greater than 50% in coordination of care (as documented) at patient's floor/unit and/or counseling patient: Internal Medicine: Result - Labs CBC & Chem 7: 01/06/19 02:39 01/06/19 02:39 - Impressions Impressions Echocardiogram 01/06/19 14:35 Impressions: LVEF 65%. Mild asymmetric basal septal hypertrophy. No LVOT obstruction. Indeterminate diastolic function. Normal right ventricular structure and function. Severe bi-atrial enlargement. Mild mitral regurgitation. Mild pulmonary hypertension. There is a small pericardial effusion present along the right atrium. There is no echocardiographic evidence of tamponade. No evidence of PFO with agitated saline contrast. Left Ventricular Wall Motion: Rest Echo Findings All wall segments showed normal motion. Findings: Study Quality * Technically adequate exam. ECG Findings * Atrial fibrillation. Left Ventricle * LVEF 65%. * Mild asymmetric basal septal hypertrophy. No LVOT obstruction. * Indeterminate diastolic function. Right Ventricle * Normal right ventricular structure and function. Left Atrium * Severely dilated left atrium. Right Atrium * Severely dilated right atrium. Aortic Valve * No aortic regurgitation. * Trileaflet aortic valve. * No aortic stenosis. Mitral Valve * No mitral stenosis. * Mildly thickened mitral valve leaflets. * Mild mitral regurgitation. Tricuspid Valve * Tricuspid valve not well visualized. * Moderate tricuspid regurgitation. * Estimated RA pressure is 3 mmHg. * Estimated RVSP is 42 mmHg. * Mild pulmonary hypertension. Pulmonic Valve * Pulmonic valve is not well visualized. * No pulmonic stenosis. * No pulmonic regurgitation. Pulmonary Artery * Pulmonary artery not well visualized. Aorta * Normally sized aortic root. Pericardium * There is a small pericardial effusion present along the right atrium. * There is no echocardiographic evidence of tamponade. Interatrial Septum * No evidence of PFO by color Doppler. * No evidence of PFO with agitated saline contrast. IVC * Normal IVC dimensions and inspiratory collapse. Retroperitoneum Ultrasound 01/06/19 17:00 IMPRESSION: 1. No evidence of hydronephrosis. Normal renal cortical echogenicity. 2. Echogenic left renal lesion measuring [address] abnormality. This lesion is indeterminate by ultrasound. Recommend follow-up MRI, when clinically appropriate and when renal function improves. 3. Additional simple appearing bilateral renal cysts. D/ / 01/06/2019 18:36:54 Uri Morton MD / cara Interpreting Provider: Uri Morton MD Consult Discharge Plan - Plan Referrals: Nolberto Zimmer DO [Primary Care Provider] - 01/11/19 11:30 am (1) Sepsis Qualifiers: Sepsis type: sepsis due to unspecified organism Qualified Code(s): A41.9 - Sepsis, unspecified organism (2) Community acquired pneumonia Qualifiers: Laterality: left Lung location: upper lobe of lung Qualified Code(s): J18.1 - Lobar pneumonia, unspecified organism (6) Fall Qualifiers: Encounter type: subsequent encounter Qualified Code(s): W19.XXXD - Unspecified fall, subsequent encounter
[2019-01-07 08:25] LABS: Basophils % 0.3 %; Eosinophils # 0.5 K/mcL (0.0-0.6); Eosinophils % 7.5 %; Hematocrit 29.2 % (35.3-44.9); Hematocrit 29.6 % (35.3-44.9); Hemoglobin 9.6 g/dL (11.5-15.4); Hemoglobin 9.7 g/dL (11.5-15.4); Immature Granulocytes % 0.3 % (0-4); Lymphocytes # 1.5 K/mcL (0.6-4.6); Lymphocytes % 24.1 %; Mean Corpuscular HGB Conc 32.9 g/dL (31.6-35.5); Mean Corpuscular Hemoglobin 30.4 pg (28.0-33.3); Mean Corpuscular Volume 92.4 fL (83.0-100.0); Mean Platelet Volume 9.9 fL (9.4-12.4); Monocytes # 0.4 K/mcL (0.0-1.3); Monocytes % 6.6 %; Neutrophils # 3.9 K/mcL (1.6-8.9); Platelet Count 203 K/mcL (140-400); Red Blood Count 3.16 M/mcL (3.82-4.97); Red Cell Distribution Width 12.6 % (11.5-14.5); Segmented Neutrophils % 61.2 %
[2019-01-07 08:27] LABS: VBG Ionized Calcium 1.08 mmol/L (1.15-1.35)
[2019-01-07] MEDS: Mirabegron [Myrbetriq] 50 MG PO SCH (08:35)
[2019-01-07] MEDS: Primidone 50 MG TABLET PO SCH ×2 (08:35→22:02)
[2019-01-07] MEDS: Diltiazem CD (24hr) 240 MG CAPSULE PO SCH ×2 (08:35→09:34)
[2019-01-07] MEDS: 0.9 % Sodium Chloride 1,000 ML IVC SCH (08:35)
[2019-01-07 08:42] LABS: BUN/Creatinine Ratio 24 (6-26); Blood Urea Nitrogen 25 mg/dL (8-23); Calcium 7.7 mg/dL (8.6-10.3); Carbon Dioxide 21 mEq/L (23-29); Chloride 106 mEq/L (98-107); Glucose 120 mg/dL (70-105); Osmolality,Calculated 284 (280-300); Potassium 3.9 mEq/L (3.5-5.1); Sodium 134 mEq/L (136-145); eGFR For Non-African Americans 50 (> 60)
[2019-01-07 09:15] LABS: Platelet Estimate Normal (Normal); Reactive Lymphocytes Present (Not Present)
[2019-01-07] MEDS: Apixaban 5 MG TABLET PO SCH ×2 (10:46→22:01)
--- NOTE | 2019-01-07 11:07 | Neurology Progress Note ---
Date of Encounter: 01/07/19 Time of Encounter: 11:05 Assessment and Plan (1) Altered mental status Current Visit: Yes Status: Acute Patient's mental status significantly improved as medical conditions continue. No evidence of [employer] pathology and certainly not a case for [employer] infection. At this time would recommend continuing medical treatment and supportive care. Will sign off at this time and i will re-evaluate the patient at your request. Qualifiers: Altered mental status type: delirium Qualified Code(s): R41.0 - Disorientation, unspecified Subjective Principal diagnosis: Altered mental status Interval history: Patient seen and examined. She feels 'lot better' today. Denies headaches or neck pain. She is oriented to time and place. No focal deficits reported. Noticed head and hand tremors these are chronic in nature. Reports chronic walking difficulty, using walker or cane to walk normally. No fever overnight. Currently off acyclovir. CT of chest showed evidence of pneumonia. Clinically, patient feeling better. Objective - Constitutional Vitals: Temp Pulse Resp BP Pulse Ox 98.3 F 99 18 120/72 96 01/07/19 10:49 01/07/19 10:49 01/07/19 10:49 01/07/19 10:49 01/07/19 10:49 General appearance: Present: cooperative, A&O X 2, pleasant, no acute distress - Neurological Exam Sensorimotor examination: Present: intact Motor Examination: Present: grossly full strength in all extremities Motor examination - right side: 5/5: deltoids, biceps, triceps, wrist flexion, wrist extension, yarn finisher, hip flexors, tibialis Anterior, quadriceps, toe extension (EHL), plantarflexion Motor examination - left side: 5/5: deltoids, biceps, triceps, wrist flexion, wrist extension, hip flexors, yarn finisher, quadriceps, tibialis Anterior, toe extension (EHL), plantarflexion Sensation intact: Present: intact Posture: Present: other (None, no nochal rigidit, no bruzinski sign) Reflexes: Biceps: 1+, Triceps: 1+, Brachioradialis: 1+, Patella: 1+, Achilles: 1+ Mental Status Examination: Present: awake, alert, oriented to person, oriented to place, follows commands appropriately, answers questions appropriately, no aphasia, opens eyes to voice, makes eye contact, follows simple commands Cranial nerve examination: Present: PERRL, EOMI, visual elena intact, corneal reflexes brisk symmetrically, sensory to face intact, mastication intact, no facial asymmetry is present, no dysarthria, hearing is intact symmetrically, soft palate elevates bilaterally upon phonation, gag reflex intact, flexes SCM and trapezius muscles symmetrically with full power, tongue protrudes midline, n o atrophy or facial fasiculations present Cerebellar examination: Present: performs finger to nose and heel to ye symmetrically without ataxia Tremor: right upper extremity (facial tremor present at well, at baseline per family) Results - Laboratory Findings CBC and BMP: 01/07/19 07:50 01/07/19 07:50 Abnormal lab findings: Abnormal lab results RBC 3.16 M/mcL (3.82-4.97) L 01/07/19 07:50 Hgb 9.6 g/dL (11.5-15.4) L 01/07/19 07:50 Hct 29.2 % (35.3-44.9) L 01/07/19 07:50 Reactive Lymphocytes Present (Not Present) A 01/07/19 07:50 VBG pCO2 38 mmHg (41-51) L 01/04/19 19:36 Sodium 134 mEq/L (136-145) L 01/07/19 07:50 Carbon Dioxide 21 mEq/L (23-29) L 01/07/19 07:50 BUN 25 mg/dL (8-23) H 01/07/19 07:50 Est GFR (Non-Af Amer) 50 (> 60) L 01/07/19 07:50 Glucose 120 mg/dL (70-105) H 01/07/19 07:50 Calcium 7.7 mg/dL (8.6-10.3) L 01/07/19 07:50 Venous Ioniz Calcium 1.08 mmol/L (1.15-1.35) L 01/07/19 08:24 Serum Total Protein 5.5 g/dL (6.4-8.9) L 01/05/19 05:02 Albumin 3.2 g/dL (3.5-5.7) L 01/05/19 05:02 Globulin 2.3 g/dL (2.4-3.5) L 01/05/19 05:02 Lipase 7 Units/L (11-82) L 01/05/19 05:02 Urine Blood Small (Negative) H 01/04/19 15:30 Urine Microscopic RBC 5-15 per hpf (0-3) H 01/04/19 15:30 Urine Microscopic WBC 3-5 per hpf (0-3) H 01/04/19 15:30 Ur Squamous Epith Cells Many per lpf (None-Few) H 01/04/19 15:30 Consult Discharge Plan - Plan Referrals: Nolberto Zimmer DO [Primary Care Provider] - 01/11/19 11:30 am
--- NOTE | 2019-01-07 11:14 | Discharge Summary ---
<Chel Perez N - Last Filed: 01/07/19 17:09> - NOTES TO OUTPATIENT PROVIDER Notes to Outpatient Provider: Patient presented with acute onset of weakness, and was subsequently found to have community-acquired pneumonia, with good response to antibiotic therapy. Chest CT demonstrated scattered small nodules throughout both lungs measuring up to 5 mm. Per radiology, recommend repeat CT in 12 months to ensure resolution of these nodules. At the time of presentation, patient had GEORGINA, which worsened over several days despite IV fluid hydration. Retroperitoneal ultrasound was performed, which demonstrated echogenic left renal lesion measuring 18 mm, with no corresponding CT abnormality appreciated. Per radiologist, recommendation for MRI follow-up to further evaluate. During hospitalization, patient was noted to have new onset of atrial fibrillation with rapid ventricular response. Cardiology evaluated patient, and rate control was achieved with Cardizem drip. Patient was transitioned to oral Cardizem prior to discharge, and is to follow up with cardiology in the outpatient clinic. Orders not resulted at time of discharge: Pending orders 01/04/19 19:20 Culture,Blood [BC] Stat 01/05/19 08:26 Culture,Blood [BC] Stat 01/05/19 09:50 Legionella Antigen [RM] Stat S. Pneumoniae Antigen [RM] Stat Date of Encounter: 01/07/19 Time of Encounter: 11:14 - Discharge Diagnosis (1) Sepsis Priority: Secondary Status: Resolved Qualifiers: Sepsis type: sepsis due to unspecified organism Qualified Code(s): A41.9 - Sepsis, unspecified organism (2) GEORGINA (acute kidney injury) Priority: Secondary Status: Acute (3) Atrial fibrillation with RVR Priority: Secondary Status: Acute (4) Weakness Priority: Secondary Status: Acute (5) Fall Priority: Secondary Status: Acute Qualifiers: Encounter type: subsequent encounter Qualified Code(s): W19.XXXD - Unspecified fall, subsequent encounter (6) Essential tremor Priority: Secondary Status: Chronic (7) Hyperglycemia Priority: Secondary Status: Resolved (8) Lung nodule, multiple Priority: Secondary Status: Acute Assessment and Plan: C (9) Community acquired pneumonia Priority: Primary Status: Acute Qualifiers: Laterality: left Lung location: upper lobe of lung Qualified Code(s): J18.1 - Lobar pneumonia, unspecified organism Hospital course: franci Kwan is a 88 year old female with a history of arthritis, osteoporosis, and essential tremor who presented to the emergency department after being found on the floor this morning after a fall. 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 Patient's son and [id number] live nearby, and frequently check on her. They report that when he checked on her at 11 this morning, they found her sprawled on the floor. Patient reportedly appeared to be in the process of getting dressed and making her bed when she fell. Patient stated that she was too weak to get up after falling, but denied any pain or injury. Initial vital signs obtained in the emergency department were significant for elevated temperature of 100.9. Laboratory studies were remarkable for serum creatinine of 1.35 and glucose of 215. Head CT was negative for any acute intracranial abnormality. Chest x-ray demonstrated mild bibasilar opacities, favored to represent atelectasis. Patient was administered a fluid bolus while in the emergency department, with no improvement in her symptoms. Upon arrival to the nursing floor, patient was seen and evaluated at the [facility]. At that time, she was noted to have significant rigors, which she was unable to control. Patient was initially started on IV antibiotic therapy with azithromycin and ceftriaxone for concerns of pneumonia versus UTI, though initial chest x-ray and urinalysis were largely unremarkable. Overnight, patient was noted to have new onset of atrial fibrillation with RVR; Cardizem GTT was initiated. Echocardiogram performed on 01/06/2019 EF 65%, with mild asymmetric basal septal hypertrophy noted. Severe biatrial enlargement, mild mitral regurgitation, and mild pulmonary hypertension were also noted, as well as a small pericardial effusion along the right atrium; however, there is no echocardiographic evidence of tamponade. once rate control, patient was transitioned to Cardizem 240 mg daily. Patient was also started on eliquis 2.5mg BID for anticoagulation. Patient was noted to have recurrent and worsening fevers despite antibiotic therapy, as well as intermittent somnolence/mental status changes. Due to concern for possible meningitis/encephalitis, antimicrobial therapy was escalated to azithromycin, vancomycin, ampicillin, and increased dose of Rocephin to cover for this possible infectious source. Neurology consultation was placed for recommendations. Chest CT performed on 01/05/2019 was significant for presence of focal consolidation in the peripheral left upper lobe suspicious for pneumonia, as well as bronchial wall thickening suggestive of bronchitis. Patient was also noted to have small pleural effusions with adjacent compressive atelectasis, large hiatal hernia with intrathoracic stomach, and extensive athero-sclerotic disease including the coronary arteries. CT of the abdomen and pelvis demonstrated no acute disease. Increased stool was noted, as well as several incidental findings. Patient had improvement in symptoms and resolution of fevers with elevated antibiotic therapy. Due to CT findings consistent with pneumonia, patient was started on Levaquin; all other antibiotics were discontinued. At the time of initial presentation, patient was noted to have acute kidney injury as demonstrated by elevated serum creatinine. She was started on IV fluid hydration to: However, serum creatinine continued to worsen over her first few days in the hospital. Retroperitoneal ultrasound was ordered and performed on 01/06/2019. Significant findings included echogenic left renal lesion measuring 18 mm with no corresponding CT abnormalities. Per radiologist's report, recommendation for follow-up MRI when clinically appropriate. Patient responded well to appropriate antibiotic therapy and fluid hydration. Patient was evaluated by physical and occupational therapy while admitted to the hospital, with recommendation for short-term stay at rehabilitation facility. Patient and family are agreeable to discharge to inpatient rehabilitation. On day of discharge, patient denies any complaints or concerns, and reported that she felt like she was becoming stronger. She was discharged with prescription for Levaquin to complete a seven-day course of therapy, as well as prescription for DuoNebs PRN. - Time Spent with Patient Total time spent providing and/or coordinating discharge services: - Discharge Medications Prescriptions: New Ipratropium/Albuterol Neb [Duoneb] 3 ml IH Q6HR PRN #20 vial.neb PRN Reason: Shortness Of Breath RX: Diltiazem CD (24hr) [Cardizem CD] 240 mg PO DAILY #30 cap.er.24h levoFLOXacin [Levaquin] 750 mg PO Q48H #3 tablet RX: Apixaban [Eliquis] 2.5 mg PO BID #60 tablet Continue RX: Primidone [Mysoline] 50 mg PO BID RX: Denosumab [Prolia (For Outpatient Infusion)] 60 mg SQ [id number] RX: [place]-3/Dha/Epa/Fish Oil [Fish Oil 1,000 mg Softgel] 1 cap PO BID RX: Mirabegron [Myrbetriq] 50 mg PO DAILY RX: Ferrous Sulfate [Iron] 325 mg PO DAILY RX: Cyanocobalamin (Vitamin B-12) [Vitamin B12] 1,000 mcg PO DAILY RX: Cholecalciferol (D-3) [Vitamin D] 5,000 unit PO DAILY RX: Acetaminophen [Tylenol Arthritis] 650 mg PO QAM Discontinued Nitrofurantoin (BID) [Macrobid] 100 mg PO BID #14 capsule Home Medications: RX: Primidone [Mysoline] 50 mg PO BID 02/10/17 [History] RX: Acetaminophen [Tylenol Arthritis] 650 mg PO QAM 02/26/17 [History] RX: Cholecalciferol (D-3) [Vitamin D] 5,000 unit PO DAILY 02/26/17 [History] RX: Cyanocobalamin (Vitamin B-12) [Vitamin B12] 1,000 mcg PO DAILY 02/26/17 [History] RX: Denosumab [Prolia (For Outpatient Infusion)] 60 mg SQ [id number] 01/04/19 [History] RX: Ferrous Sulfate [Iron] 325 mg PO DAILY 01/04/19 [History] RX: Mirabegron [Myrbetriq] 50 mg PO DAILY 01/04/19 [History] RX: [place]-3/Dha/Epa/Fish Oil [Fish Oil 1,000 mg Softgel] 1 cap PO BID 01/04/19 [History] Ipratropium/Albuterol Neb [Duoneb] 3 ml IH Q6HR PRN #20 vial.neb 01/07/19 [Rx] RX: Apixaban [Eliquis] 2.5 mg PO BID #60 tablet 01/07/19 [Rx] RX: Diltiazem CD (24hr) [Cardizem CD] 240 mg PO DAILY #30 cap.er.24h 01/07/19 [Rx] levoFLOXacin [Levaquin] 750 mg PO Q48H #3 tablet 01/07/19 [Rx] Allergies/Adverse Reactions: Allergy/AdvReac Type Severity Reaction Status Date / Time aspirin Allergy Swelling Verified 01/04/19 15:54 of Lip/Tongue/Throat Date of admission: 01/04/19 17:25 Primary care physician: Nolberto Zimmer DO Consults: 01/04/19 18:27 Consult to Occupational Therapy [CONS] Routine Comment: Evaluate, develop and implement POC Reason for Consult: weakness, s/p fall Does patient have active BEDREST order?: No Is patient medically & hemodynamically stable?: Yes Patient assessed for mobility or mobilized this visit?: No Consult to Physical Therapy [CONS] Routine Comment: Evaluate, develop and implement POC Reason for Consult: weakness, s/p fall Does patient have active BEDREST order?: No Is patient medically & hemodynamically stable?: Yes Patient assessed for mobility or mobilized this visit?: No 01/05/19 04:10 Consult to Cardiology [CONS] Routine Comment: Consulting Provider: Cardiology [place] Reason for Consult: New onset afib with RVR with rate of 141. Cardizem drip started. Call Completed: No 01/05/19 11:35 Consult to Neurology [CONS] Routine Consulting Provider: Neurology [facility] Reason for Consult: Concern for meningitis - pt with high fevers, confusion, intermittent somnolence, SIRS criteria Time Notified: 11:36 Call Completed: No 01/06/19 14:41 Consult to Occupational Therapy [CONS] Routine Comment: Evaluate, develop and implement POC Reason for Consult: therapy/placement needs Does patient have active BEDREST order?: No Is patient medically & hemodynamically stable?: Yes Consult to Physical Therapy [CONS] Routine Comment: Evaluate, develop and implement POC Reason for Consult: PT eval Does patient have active BEDREST order?: No Is patient medically & hemodynamically stable?: Yes Discharging clinician: Chel Perez Anticipated date of discharge: 01/07/19 - Constitutional Vitals: Temp Pulse Resp BP Pulse Ox 98.3 F 99 18 120/72 96 01/07/19 10:49 01/07/19 10:49 01/07/19 10:49 01/07/19 10:49 01/07/19 10:49 Exam: GENERAL: Elderly adult female lying in bed with obvious rigors. HEENT: Atraumatic and normocephalic. Nasal cannula in place. CARDIOVASCULAR: Regular rate and rhythm. No murmurs, gallops, or rubs noted. RESPIRATORY: Clear to auscultation bilaterally. Chest rises and falls symmetrically without accessory muscle use. GASTROINTESTINAL: Abdomen is soft, nontender, nondistended. Bowel sounds present 4 quadrants. EXTREMITIES: No clubbing, cyanosis, or edema. SKIN: Warm, dry, and intact. NEUROLOGIC: Patient is cooperative with exam and answers questions appropriately. No apparent focal deficits. PSYCHIATRIC: Appropriate mood and affect. - Patient Status Disposition: Transfer Inpatient Rehab Fac Condition: Fair - Discharge Instructions Follow Up With: Nolberto Zimmer DO [Primary Care Provider] - 01/11/19 11:30 am Additional Instructions: Follow-up with the PCP in 3-5 days for reevaluation. Continue taking your regular home medications. Take Levaquin 750 mg once daily on the following days: Wednesday (01/08/19), Wednesday (01/10/19), and (01/12/19). Use DuoNebs breathing treatments every 6 hours as needed for wheezing and/or shortness of breath. Do not resume any prior antibiotics. Take eliquis 2.5 mg twice a day. Continue taking Cardizem 240 mg once daily. Follow up with outpatient cardiology clinic as scheduled. Return to the emergency department if he develops fevers, chills, shortness of breath, chest pain, increased fatigue, weakness, signs of bleeding, or if any new concerns arise. - Diet and Activity Activity: as per physical therapy Diet: regular diet <Ishaan Catherine - Last Filed: 01/07/19 18:54> Orders not resulted at time of discharge: Pending orders 01/04/19 19:20 Culture,Blood [BC] Stat 01/05/19 08:26 Culture,Blood [BC] Stat 01/05/19 09:50 Legionella Antigen [RM] Stat S. Pneumoniae Antigen [RM] Stat Date of Encounter: 01/07/19 - Discharge Diagnosis (1) Weakness Status: Acute (2) Fall Status: Acute Qualifiers: Encounter type: subsequent encounter Qualified Code(s): W19.XXXD - Unspecified fall, subsequent encounter (3) GEORGINA (acute kidney injury) Status: Acute (4) Hyperglycemia Status: Resolved (5) Atrial fibrillation with RVR Status: Acute (6) Lung nodule, multiple Status: Acute (7) Essential tremor Status: Chronic (8) Sepsis Status: Resolved Qualifiers: Sepsis type: sepsis due to unspecified organism Qualified Code(s): A41.9 - Sepsis, unspecified organism (9) Community acquired pneumonia Status: Acute Qualifiers: Laterality: left Lung location: upper lobe of lung Qualified Code(s): J18.1 - Lobar pneumonia, unspecified organism Hospital course: Ms. Kwan is a 88 year old female - Time Spent with Patient Total time spent providing and/or coordinating discharge services: Time spent: Greater than 30 minutes Date of admission: 01/04/19 17:25 Primary care physician: Nolberto Zimmer, DO Consults: 01/04/19 18:27 Consult to Occupational Therapy [CONS] Routine Comment: Evaluate, develop and implement POC Reason for Consult: weakness, s/p fall Does patient have active BEDREST order?: No Is patient medically & hemodynamically stable?: Yes Patient assessed for mobility or mobilized this visit?: No Consult to Physical Therapy [CONS] Routine Comment: Evaluate, develop and implement POC Reason for Consult: weakness, s/p fall Does patient have active BEDREST order?: No Is patient medically & hemodynamically stable?: Yes Patient assessed for mobility or mobilized this visit?: No 01/05/19 04:10 Consult to Cardiology [CONS] Routine Comment: Consulting Provider: Cardiology [place] Reason for Consult: New onset afib with RVR with rate of 141. Cardizem drip started. Call Completed: No 01/05/19 11:35 Consult to Neurology [CONS] Routine Consulting Provider: Neurology [facility] Reason for Consult: Concern for meningitis - pt with high fevers, confusion, intermittent somnolence, SIRS criteria Time Notified: 11:36 Call Completed: No 01/06/19 14:41 Consult to Occupational Therapy [CONS] Routine Comment: Evaluate, develop and implement POC Reason for Consult: therapy/placement needs Does patient have active BEDREST order?: No Is patient medically & hemodynamically stable?: Yes Consult to Physical Therapy [CONS] Routine Comment: Evaluate, develop and implement POC Reason for Consult: PT eval Does patient have active BEDREST order?: No Is patient medically & hemodynamically stable?: Yes - Constitutional Vitals: Temp Pulse Resp BP Pulse Ox 98.6 F 97 16 144/80 96 01/07/19 18:34 01/07/19 18:34 01/07/19 18:34 01/07/19 18:34 01/07/19 18:34 - Attending Attestation Patient was seen and examined. I agree with the discharge document as written by the resident physician. Patient admitted with weakness. Found to have pneumonia. CT chest showed consolidation but showed scattered small nodules and recommended repeat in 12 months. Had GEORGINA which resolved by discharge. Renal US demonstrated echogenic left renal lesion measuring 18 mm, with no corresponding CT abnormality appre ciated. Per radiologist, recommendation for MRI follow-up to further evaluate. During hospitalization, patient was noted to have new onset of atrial fibrillation with rapid ventricular response. Cardiology evaluated patient, and rate control was achieved with Cardizem drip. Patient was transitioned to oral Cardizem prior to discharge, and is to follow up with cardiology in the outpatient clinic. GEN: NAD CVS: RRR. S1, S2, No m/r/g RESP: CTAB ABD: Soft, NT, ND, +BS EXT: No edema, no rashes, 2+ DP NEURO: Nonfocal Please note 35 minutes were spent on coordination of this discharge with patient, nursing staff, care coordinators, and consultants. Addendum entered and electronically signed by Chel Perez 01/10/19 10:42: Patient was approved for ECF on 01/09/2019; however, discharge was held in order to observe new petechial rash, which is now resolving. Patent was discharged to ECF on 01/10/2019.
--- NOTE | 2019-01-07 11:15 | Physician Discharge Referral ---
ExtendedCare Referral Info Provider in Charge: Dr. Ishaan Catherine Provider in Charge after Transfer: PCP Institutional Level of Care: Skilled - Diagnosis (1) Sepsis Priority: Secondary Status: Resolved (2) Community acquired pneumonia Priority: Primary Status: Acute (3) GEORGINA (acute kidney injury) Priority: Secondary Status: Acute (4) Atrial fibrillation with RVR Priority: Secondary Status: Acute (5) Weakness Priority: Secondary Status: Acute (6) Fall Priority: Secondary Status: Acute (7) Essential tremor Priority: Secondary Status: Chronic (8) Hyperglycemia Status: Resolved (9) Lung nodule, multiple Priority: Secondary Status: Acute - Transfer Medications Prescriptions: Ipratropium/Albuterol Neb [Duoneb] 3 ml IH Q6HR PRN #20 vial.neb PRN Reason: Shortness Of Breath Apixaban [Eliquis] 2.5 mg PO BID #60 tablet Diltiazem CD (24hr) [Cardizem CD] 240 mg PO DAILY #30 cap.er.24h levoFLOXacin [Levaquin] 750 mg PO Q48H #3 tablet Home Medications: Primidone [Mysoline] 50 mg PO BID 02/10/17 [History] Acetaminophen [Tylenol Arthritis] 650 mg PO QAM 02/26/17 [History] Cholecalciferol (D-3) [Vitamin D] 5,000 unit PO DAILY 02/26/17 [History] Cyanocobalamin (Vitamin B-12) [Vitamin B12] 1,000 mcg PO DAILY 02/26/17 [History] Denosumab [Prolia (For Outpatient Infusion)] 60 mg SQ [id number] 01/04/19 [History] Ferrous Sulfate [Iron] 325 mg PO DAILY 01/04/19 [History] Mirabegron [Myrbetriq] 50 mg PO DAILY 01/04/19 [History] [place]-3/Dha/Epa/Fish Oil [Fish Oil 1,000 mg Softgel] 1 cap PO BID 01/04/19 [History] Apixaban [Eliquis] 2.5 mg PO BID #60 tablet 01/07/19 [Rx] Diltiazem CD (24hr) [Cardizem CD] 240 mg PO DAILY #30 cap.er.24h 01/07/19 [Rx] Ipratropium/Albuterol Neb [Duoneb] 3 ml IH Q6HR PRN #20 vial.neb 01/07/19 [Rx] levoFLOXacin [Levaquin] 750 mg PO Q48H #3 tablet 01/07/19 [Rx] Allergies/Adverse Reactions: Allergy/AdvReac Type Severity Reaction Status Date / Time aspirin Allergy Swelling Verified 01/04/19 15:54 of Lip/Tongue/Throat - Respiratory Orders Smoking Cessation: Smoking cessation has been advised. For more information, call the [place] Tobacco Quit Line at 5-413-VRJD-NOW. - Ancillary Orders May use pressure relief devices daily prn - Rehabiliation Orders Rehab Potential: Good Rehab Orders: ROM Exercises, Evaluation for Physical Therapy, Evaluation for Occupational Therapy, Evaluation for Speech Therapy - Treatments Skin tear care topically daily PRN per policy - Diet Orders Regular CERTIFICATION: I certify that the transfer of the above named patient to an Extended Care Facility is necessary for the continuing treatment of the diagnosis listed. The above information is true and accurate reflection of patient's current condition. Confidential - Redisclosure prohibited without a patient's written consent.
--- NOTE | 2019-01-08 07:48 | Internal Med Progress Note ---
Hospitalist Progress Note - Encounter Date of Encounter: 01/08/19 Time of Encounter: 07:47 - Subjective Interval History: Patient is seen and evaluated the bedside this morning. She denies any complaints or concerns, and states that she is doing well. Upon family arrival later in the morning, physician presence the bedside was requested. Family reported concerns that the patient had become more confused, stating that she had been asking about family members as if they were saying to visit today. They report that she has also been speaking about going out to lunch today, which is normal on Wednesday, despite being in the hospital. Patient denies any specific complaints or concerns, and vital signs have remained WNL. - Exam Vitals: Temp Pulse Resp BP Pulse Ox 97.6 F 98 18 133/87 96 01/08/19 06:30 01/08/19 06:30 01/08/19 06:30 01/08/19 06:30 01/08/19 06:30 Exam: GENERAL: Elderly adult female lying in bed in no acute distress. Essential tremor present. HEENT: Atraumatic and normocephalic. Nasal cannula in place. CARDIOVASCULAR: Regular rate and rhythm. No murmurs, gallops, or rubs noted. RESPIRATORY: Clear to auscultation bilaterally. Chest rises and falls symmetrically without accessory muscle use. GASTROINTESTINAL: Abdomen is soft, nontender, nondistended. Bowel sounds present 4 quadrants. EXTREMITIES: No clubbing, cyanosis, or edema. SKIN: Warm, dry, and intact. NEUROLOGIC: Patient is cooperative with exam and answers questions appropriately. No apparent focal deficits. PSYCHIATRIC: Appropriate mood and affect. - Assessment and Plan (1) Community acquired pneumonia Current Visit: Yes Status: Acute Assessment and Plan: Infectious organism unknown. Chest CT demonstrated consolidation of the left peripheral upper lobe consistent with pneumonia. Patient has been symptomatically improving with IV antibiotics. - Continue Levaquin 750 mg Q46H. (2) Confusion Current Visit: Yes Status: Acute Assessment and Plan: High suspicion that this is likely secondary to prolonged hospitalization. Nursing staff reports the patient became confused last night; however, she is easily reoriented. Family members at the bedside this afternoon expresses concern for her confusion, as it is different from her baseline. Patient has been reportedly asking when she is going to leave for sending lunch though she has been informed that she is staying and awaiting placement at rehabilitation facility. Patient has also been asking about family members that are . Due to family concerns, repeat laboratory studies were obtained; however, there are no significant changes as compared to yesterday's results. Family has been updated on these findings. - Repeat urinalysis pending to rule out acute UTI. - Continue to monitor and reoriented as necessary. - Consider additional workup if patient becomes further altered or confused. (3) Atrial fibrillation with RVR Current Visit: Yes Status: Acute Assessment and Plan: New onset of atrial fibrillation with RVR. Patient is currently receiving diltiazem 60mg Q6H per cardiology recommendations. Echocardiogram performed this afternoon demonstrated LVEF 65%, with mild asymmetric basal septal hypertrophy noted. Severe biatrial enlargement, mild mitral regurgitation, and mild pulmonary hypertension were also noted, as well as a small pericardial effusion along the right atrium; however, there is no echocardiographic evidence of tamponade. - Continue Cardizem 240 mg daily. (4) Weakness Current Visit: Yes Status: Acute Assessment and Plan: Likely secondary to pneumonia. - Continue IVF hydration with 0.9% NaCl. - Consults placed to physical and occupational therapy for evaluation. - Continue antibiotic therapy for pneumonia as above. (5) Essential tremor Current Visit: Yes Status: Chronic (6) GEORGINA (acute kidney injury) Current Visit: Yes Status: Resolved (7) Lung nodule, multiple Current Visit: Yes Status: Acute Assessment and Plan: C DVT Prophylaxis: - SCDs. - Time Spent with Patient Total time spent is greater than 50% in coordination of care (as documented) at patient's floor/unit and/or counseling patient: Internal Medicine: Result - Labs CBC & Chem 7: 01/08/19 12:12 01/08/19 12:12 Labs: Short CBC 01/07/19 01/07/19 Range/Units 07:50 07:50 WBC 6.4 (4.3-11.1) K/mcL Hgb 9.7 L 9.6 L (11.5-15.4) g/dL Hct 29.6 L 29.2 L (35.3-44.9) % Plt Count 203 (140-400) K/mcL Neutrophils # 3.9 (1.6-8.9) K/mcL BMP 01/07/19 07:50 Sodium 134 L Potassium 3.9 Chloride 106 Carbon Dioxide 21 L BUN 25 H Creatinine 1.04 Glucose 120 H Calcium 7.7 L - Impressions Impressions Head CT 01/04/19 14:03 IMPRESSION: No acute intracranial abnormality. Nonspecific white matter disease, likely due to chronic small vessel ischemia. Mild age-related atrophy. D/ / 01/04/2019 16:03:17 Otoniel Martinez MD / cara Interpreting Provider: Otoniel Martinez MD Consult Discharge Plan - Plan Additional Instructions: Follow-up with the PCP in 3-5 days for reevaluation. Continue taking your regular home medications. Take Levaquin 750 mg once daily on the following days: Wednesday (01/08/19), Wednesday (01/10/19), and (01/12/19). Use DuoNebs breathing treatments every 6 hours as needed for wheezing and/or shortness of breath. Do not resume any prior antibiotics. Take eliquis 2.5 mg twice a day. Continue taking Cardizem 240 mg once daily. Follow up with outpatient cardiology clinic as scheduled. Return to the emergency department if he develops fevers, chills, shortness of breath, chest pain, increased fatigue, weakness, signs of bleeding, or if any new concerns arise. Referrals: Nolberto Zimmer DO [Primary Care Provider] - 01/11/19 11:30 am Prescriptions: Ipratropium/Albuterol Neb [Duoneb] 3 ml IH Q6HR PRN #20 vial.neb PRN Reason: Shortness Of Breath Apixaban [Eliquis] 2.5 mg PO BID #60 tablet Diltiazem CD (24hr) [Cardizem CD] 240 mg PO DAILY #30 cap.er.24h levoFLOXacin [Levaquin] 750 mg PO Q48H #3 tablet (1) Community acquired pneumonia Qualifiers: Laterality: left Lung location: upper lobe of lung Qualified Code(s): J18.1 - Lobar pneumonia, unspecified organism
[2019-01-08] MEDS: Apixaban 5 MG TABLET PO SCH ×2 (08:00→21:45)
[2019-01-08] MEDS: Diltiazem CD (24hr) 240 MG CAPSULE PO SCH (08:00)
[2019-01-08] MEDS: Primidone 50 MG TABLET PO SCH ×2 (08:00→21:44)
[2019-01-08] MEDS: Mirabegron [Myrbetriq] 50 MG PO SCH (08:00)
--- NOTE | 2019-01-08 10:42 | Event Note ---
Date of Encounter: 01/08/19 Time of Encounter: 10:41 Patient was seen and examined. I agree with the progress note as written by the resident physician. No acute events. Awaiting placement. Feels well. Afebrile. Patient admitted with weakness. Found to have pneumonia. CT chest showed consolidation but showed scattered small nodules and recommended repeat in 12 months. Had GEORGINA which resolved by discharge. Renal US demonstrated echogenic left renal lesion measuring 18 mm, with no corresponding CT abnormality appreciated. Per radio logist, recommendation for MRI follow-up to further evaluate. During hospitalization, patient was noted to have new onset of atrial fibrillation with rapid ventricular response. Cardiology evaluated patient, and rate control was achieved with Cardizem drip. Patient was transitioned to oral Cardizem prior to discharge, and is to follow up with cardiology in the outpatient clinic. GEN: NAD CVS: RRR. S1, S2, No m/r/g RESP: CTAB ABD: Soft, NT, ND, +BS EXT: No edema, no rashes, 2+ DP NEURO: Nonfocal c/w levaquin c/w cardizem. Neno joy Recommend CT chest in 12 months and MRI kidneys as outpatient for findings of 18 mm left renal lesion on US c/w home meds Await placement.
[2019-01-08] MEDS: Levofloxacin 750 MG/150 ML 750 MG/150 ML BAG IVPB SCH (11:04)
[2019-01-08 13:06] LABS: Hematocrit 32.2 % (35.3-44.9); Hemoglobin 10.5 g/dL (11.5-15.4); Mean Corpuscular HGB Conc 32.6 g/dL (31.6-35.5); Mean Corpuscular Hemoglobin 30.3 pg (28.0-33.3); Mean Corpuscular Volume 92.8 fL (83.0-100.0); Mean Platelet Volume 9.2 fL (9.4-12.4); Platelet Count 264 K/mcL (140-400); Red Blood Count 3.47 M/mcL (3.82-4.97); Red Cell Distribution Width 12.4 % (11.5-14.5)
[2019-01-08 13:12] LABS: BUN/Creatinine Ratio 16 (6-26); Blood Urea Nitrogen 16 mg/dL (8-23); Calcium 8.5 mg/dL (8.6-10.3); Carbon Dioxide 25 mEq/L (23-29); Chloride 106 mEq/L (98-107); Glucose 156 mg/dL (70-105); Osmolality,Calculated 286 (280-300); Sodium 136 mEq/L (136-145); eGFR For Non-African Americans 51 (> 60)
[2019-01-08] MEDS ORDERED: Simethicone 80 MG TAB.CHEW PO PRN (17:48)
--- NOTE | 2019-01-09 07:49 | Internal Med Progress Note ---
Hospitalist Progress Note - Encounter Date of Encounter: 01/09/19 Time of Encounter: 07:49 - Subjective Interval History: Ms. Kwan was seen and evaluated at the bedside this morning. She reports that she is feeling well, denies any complaints. On exam this morning, nursing staff reported new rash to bilateral lower extremities. Patient's family was r eportedly very concerned, and requested that this be further evaluated. Patient denies any pain intermittently confused overnight, but is easily reoriented. They deny any other concerns at this time. - Exam Vitals: Temp Pulse Resp BP Pulse Ox 97.9 F 95 18 109/58 97 01/09/19 06:34 01/09/19 06:34 01/09/19 06:34 01/09/19 06:34 01/09/19 06:34 Exam: GENERAL: Elderly adult female lying in bed in no acute distress. Essential tremor present. HEENT: Atraumatic and normocephalic. Nasal cannula in place. CARDIOVASCULAR: Regular rate and rhythm. No murmurs, gallops, or rubs noted. RESPIRATORY: Clear to auscultation bilaterally. Chest rises and falls symmetrically without accessory muscle use. GASTROINTESTINAL: Abdomen is soft, nontender, nondistended. Bowel sounds present 4 quadrants. EXTREMITIES: No clubbing, cyanosis, or edema. SKIN: Warm, dry, and intact. He will rash present on bilateral lower extremities extending to the knee. NEUROLOGIC: Patient is cooperative with exam and answers questions appropriately. No apparent focal deficits. PSYCHIATRIC: Appropriate mood and affect. - Assessment and Plan (1) Petechiae Current Visit: Yes Status: Acute Assessment and Plan: Unclear etiology. Patient's family reported noting new rash on bilateral lower extremities extending to the knees. On examination, patient was noted to have a new onset of petechial rash that is nontender. Patient also has mild lower extremity edema. She denies any discomfort with this rash, and denies any itching or burning sensation. Plan: - Continue to monitor rash overnight. If it appears to be spreading or worsening, consider further workup. If stable or improving, plan to continue monitoring for the next week to ensure resolution. (2) Community acquired pneumonia Current Visit: Yes Status: Acute Assessment and Plan: Infectious organism unknown. Chest CT demonstrated consolidation of the left peripheral upper lobe consistent with pneumonia. Patient has been symptomatically improving with IV antibiotics. - Continue Levaquin 750 mg Q48H. (3) Confusion Current Visit: Yes Status: Acute Assessment and Plan: High suspicion that this is likely secondary to prolonged hospitalization. Nursing staff reports the patient became confused a few nights ago; however, she is easily reoriented and is in no distress. Patient has remained afebrile, and vital signs are WNL. - Continue to monitor and reoriented as necessary. - Consider additional workup if patient becomes further altered or confused. (4) Atrial fibrillation with RVR Current Visit: Yes Status: Acute Assessment and Plan: New onset of atrial fibrillation with RVR. Patient is currently receiving diltiazem 60mg Q6H per cardiology recommendations. Echocardiogram performed this afternoon demonstrated LVEF 65%, with mild asymmetric basal septal hypertrophy noted. Severe biatrial enlargement, mild mitral regurgitation, and mild pulmonary hypertension were also noted, as well as a small pericardial effusion along the right atrium; however, there is no echocardiographic evidence of tamponade. - Continue Cardizem 240 mg daily. (5) Weakness Current Visit: Yes Status: Acute Assessment and Plan: Likely secondary to pneumonia. - Patient is currently pending placement at [facility] for physical and occupational therapy. (6) Essential tremor Current Visit: Yes Status: Chronic Assessment and Plan: - Continue home medication of primidone 50mg BID. (7) GEORGINA (acute kidney injury) Current Visit: Yes Status: Resolved (8) Lung nodule, multiple Current Visit: Yes Status: Acute Assessment and Plan: C DVT Prophylaxis: - SCDs. - Time Spent with Patient Total time spent is greater than 50% in coordination of care (as documented) at patient's floor/unit and/or counseling patient: Internal Medicine: Result - Labs CBC & Chem 7: 01/09/19 10:05 01/08/19 12:12 Labs: Short CBC 01/08/19 Range/Units 12:12 WBC 7.9 (4.3-11.1) K/mcL Hgb 10.5 L (11.5-15.4) g/dL Hct 32.2 L (35.3-44.9) % Plt Count 264 (140-400) K/mcL BMP 01/08/19 12:12 Sodium 136 Potassium 4.0 Chloride 106 Carbon Dioxide 25 BUN 16 Creatinine 1.03 Glucose 156 H Calcium 8.5 L Consult Discharge Plan - Plan Additional Instructions: Follow-up with the PCP in 3-5 days for reevaluation. Continue taking your regular home medications. Take Levaquin 750 mg once daily on the following days: Wednesday (01/08/19), Wednesday (01/10/19), and (01/12/19). Use DuoNebs breathing treatments every 6 hours as needed for wheezing and/or shortness of breath. Do not resume any prior antibiotics. Take eliquis 2.5 mg twice a day. Continue taking Cardizem 240 mg once daily. Follow up with outpatient cardiology clinic as scheduled. Return to the emergency department if he develops fevers, chills, shortness of breath, chest pain, increased fatigue, weakness, signs of bleeding, or if any new concerns arise. Referrals: Nolberto Zimmer DO [Primary Care Provider] - 01/11/19 11:30 am Prescriptions: Ipratropium/Albuterol Neb [Duoneb] 3 ml IH Q6HR PRN #20 vial.neb PRN Reason: Shortness Of Breath Apixaban [Eliquis] 2.5 mg PO BID #60 tablet Diltiazem CD (24hr) [Cardizem CD] 240 mg PO DAILY #30 cap.er.24h levoFLOXacin [Levaquin] 750 mg PO Q48H #3 tablet (2) Community acquired pneumonia Qualifiers: Laterality: left Lung location: upper lobe of lung Qualified Code(s): J18.1 - Lobar pneumonia, unspecified organism
[2019-01-09] MEDS: Apixaban 5 MG TABLET PO SCH ×2 (09:35→20:06)
[2019-01-09] MEDS: Primidone 50 MG TABLET PO SCH ×2 (09:35→20:06)
[2019-01-09] MEDS: Diltiazem CD (24hr) 240 MG CAPSULE PO SCH (09:35)
[2019-01-09] MEDS: Mirabegron [Myrbetriq] 50 MG PO SCH (09:36)
--- NOTE | 2019-01-09 09:54 | Event Note ---
Date of Encounter: 01/09/19 Time of Encounter: 09:53 Patient was seen and examined. I agree with the progress note as written by the resident physician. Awaiting placement. Has petechial rash lower extremity from the feet up to the knees. Afebrile. Patient admitted with weakness. Found to have pneumonia. CT chest showed consolidation but showed scattered small nodules and recommended repeat in 12 months. Had GEORGINA which resolved by discharge. Renal US demonstrated echogenic left renal lesion measuring 18 mm, with no corresponding CT abnormality appreciated. Per radiologist, recommendation for MRI follow-up to further evaluate. During hospitalization, patient was noted to have new onset of atrial fibrillation with rapid ventricular response. Cardiology evaluated patient, and rate control was achieved with Cardizem drip. Patient was transitioned to oral Cardizem prior to discharge, and is to follow up with cardiology in the outpatient clinic. GEN: NAD CVS: RRR. S1, S2, No m/r/g RESP: CTAB ABD: Soft, NT, ND, +BS EXT: No edema, has particular rash from the feet bilaterally although a up to the knees and some spots on the thighs. , 2+ DP NEURO: Nonfocal c/w levaquin c/w cardizem. Neno joy Recommend CT chest in 12 months and MRI kidneys as outpatient for findings of 18 mm left renal lesion on US c/w home meds Will wait another day inpatient and monitor petechial rash in the lower extremities to monitor resolution or worsening. Needs placement
[2019-01-09 10:15] LABS: Basophils % 0.3 %; Eosinophils # 0.6 K/mcL (0.0-0.6); Eosinophils % 8.6 %; Hematocrit 29.1 % (35.3-44.9); Hemoglobin 9.4 g/dL (11.5-15.4); Immature Granulocytes % 0.5 % (0-4); Lymphocytes # 1.6 K/mcL (0.6-4.6); Lymphocytes % 21.5 %; Mean Corpuscular HGB Conc 32.3 g/dL (31.6-35.5); Mean Corpuscular Hemoglobin 30.2 pg (28.0-33.3); Mean Corpuscular Volume 93.6 fL (83.0-100.0); Mean Platelet Volume 8.8 fL (9.4-12.4); Monocytes # 0.5 K/mcL (0.0-1.3); Monocytes % 7.3 %; Neutrophils # 4.5 K/mcL (1.6-8.9); Platelet Count 242 K/mcL (140-400); Red Blood Count 3.11 M/mcL (3.82-4.97); Red Cell Distribution Width 12.4 % (11.5-14.5); Segmented Neutrophils % 61.8 %
[2019-01-10 05:06] LABS: Basophils % 0.5 %; Eosinophils % 11.3 %; Hematocrit 29.3 % (35.3-44.9); Hemoglobin 9.5 g/dL (11.5-15.4); Immature Granulocytes % 0.7 % (0-4); Lymphocytes # 2.1 K/mcL (0.6-4.6); Lymphocytes % 23.5 %; Mean Corpuscular HGB Conc 32.4 g/dL (31.6-35.5); Mean Corpuscular Hemoglobin 29.9 pg (28.0-33.3); Mean Corpuscular Volume 92.1 fL (83.0-100.0); Mean Platelet Volume 9.3 fL (9.4-12.4); Monocytes # 0.6 K/mcL (0.0-1.3); Platelet Count 295 K/mcL (140-400); Red Blood Count 3.18 M/mcL (3.82-4.97); Red Cell Distribution Width 12.4 % (11.5-14.5)
[2019-01-10 05:28] LABS: BUN/Creatinine Ratio 17 (6-26); Blood Urea Nitrogen 16 mg/dL (8-23); Calcium 8.2 mg/dL (8.6-10.3); Carbon Dioxide 25 mEq/L (23-29); Chloride 104 mEq/L (98-107); Glucose 116 mg/dL (70-105); Osmolality,Calculated 288 (280-300); Potassium 3.3 mEq/L (3.5-5.1); Sodium 138 mEq/L (136-145); eGFR For Non-African Americans 57 (> 60)
--- NOTE | 2019-01-10 07:33 | Internal Med Progress Note ---
Hospitalist Progress Note - Encounter Date of Encounter: 01/10/19 Time of Encounter: 07:33 - Subjective Interval History: Ms. Kwan was seen and evaluated at the bedside. She reports that she is feeling well today, and is eager to be discharged to rehab facility. She denies any acute complaints or concerns this morning. Nursing staff reports no signif icant overnight events. - Exam Vitals: Temp Pulse Resp BP Pulse Ox 98.5 F 91 17 140/78 92 01/10/19 06:33 01/10/19 06:01/10/19 06:33 01/10/19 06:01/10/19 06:33 Exam: GENERAL: Elderly adult female sitting in bed in no acute distress. Essential tremor present. HEENT: Atraumatic and normocephalic. Nasal cannula in place. CARDIOVASCULAR: Regular rate and rhythm. No murmurs, gallops, or rubs noted. RESPIRATORY: Clear to auscultation bilaterally. Chest rises and falls symmetrically without accessory muscle use. GASTROINTESTINAL: Abdomen is soft, nontender, nondistended. Bowel sounds present 4 quadrants. EXTREMITIES: No clubbing, cyanosis, or edema. SKIN: Warm, dry, and intact. Petechial rash present on bilateral lower extremities extending to the knee that is significantly improved from yesterday. NEUROLOGIC: Patient is cooperative with exam and answers questions appropriately. No apparent focal deficits. PSYCHIATRIC: Appropriate mood and affect. - Assessment and Plan (1) Petechiae Current Visit: Yes Status: Acute Assessment and Plan: Unclear etiology. Patient's family reported noting new rash on bilateral lower extremities extending to the knees. On examination, patient was noted to have a new onset of petechial rash that is nontender. Patient also has mild lower extremity edema. She denies any discomfort with this rash, and denies any itching or burning sensation. On evaluation this morning, rash appears to be improved. Plan: - Continue monitoring for the next week to ensure resolution. (2) Community acquired pneumonia Current Visit: Yes Status: Acute Assessment and Plan: Infectious organism unknown. Chest CT demonstrated consolidation of the left peripheral upper lobe consistent with pneumonia. Patient has been symptomatically improving with IV antibiotics. - Continue Levaquin 750 mg Q48H. (3) Confusion Current Visit: Yes Status: Acute Assessment and Plan: High suspicion that this is likely secondary to prolonged hospitalization. Nursing staff reports the patient became confused a few nights ago; however, she is easily reoriented and is in no distress. Patient has remained afebrile, and vital signs are WNL. - Continue to monitor and reoriented as necessary. (4) Atrial fibrillation with RVR Current Visit: Yes Status: Acute Assessment and Plan: New onset of atrial fibrillation with RVR. Patient is currently receiving diltiazem 60mg Q6H per cardiology recommendations. Echocardiogram demonstrated LVEF 65%, with mild asymmetric basal septal hyp ertrophy noted. Severe biatrial enlargement, mild mitral regurgitation, and mild pulmonary hypertension were also noted, as well as a small pericardial effusion along the right atrium; however, there is no echocardiographic evidence of tamponade. - Continue Cardizem 240 mg daily. (5) Weakness Current Visit: Yes Status: Acute Assessment and Plan: Likely secondary to pneumonia. - Patient is currently pending placement at [facility] for physical and occupational therapy. (6) Essential tremor Current Visit: Yes Status: Chronic Assessment and Plan: - Continue home medication of primidone 50mg BID. (7) Lung nodule, multiple Current Visit: Yes Status: Acute Assessment and Plan: C DVT Prophylaxis: - SCDs. - Time Spent with Patient Total time spent is greater than 50% in coordination of care (as documented) at patient's floor/unit and/or counseling patient: Internal Medicine: Result - Labs CBC & Chem 7: 01/10/19 03:54 01/10/19 03:54 Labs: Short CBC 01/09/19 01/10/19 Range/Units 10:05 03:54 WBC 7.3 8.7 (4.3-11.1) K/mcL Hgb 9.4 L 9.5 L (11.5-15.4) g/dL Hct 29.1 L 29.3 L (35.3-44.9) % Plt Count 242 295 (140-400) K/mcL Neutrophils # 4.5 5.0 (1.6-8.9) K/mcL BMP 01/10/19 03:54 Sodium 138 Potassium 3.3 L Chloride 104 Carbon Dioxide 25 BUN 16 Creatinine 0.93 Glucose 116 H Calcium 8.2 L Consult Discharge Plan - Plan Additional Instructions: Follow-up with the PCP in 3-5 days for reevaluation. Continue taking your regular home medications. Take Levaquin 750 mg once daily on the following days: Wednesday (01/08/19), Wednesday (01/10/19), and (01/12/19). Use DuoNebs breathing treatments every 6 hours as needed for wheezing and/or shortness of breath. Do not resume any prior antibiotics. Take eliquis 2.5 mg twice a day. Continue taking Cardizem 240 mg once daily. Follow up with outpatient cardiology clinic as scheduled. Return to the emergency department if he develops fevers, chills, shortness of breath, chest pain, increased fatigue, weakness, signs of bleeding, or if any ne w concerns arise. Referrals: Nolberto Zimmer DO [Primary Care Provider] - 01/11/19 11:30 am Prescriptions: Ipratropium/Albuterol Neb [Duoneb] 3 ml IH Q6HR PRN #20 vial.neb PRN Reason: Shortness Of Breath Apixaban [Eliquis] 2.5 mg PO BID #60 tablet Diltiazem CD (24hr) [Cardizem CD] 240 mg PO DAILY #30 cap.er.24h levoFLOXacin [Levaquin] 750 mg PO Q48H #3 tablet (2) Community acquired pneumonia Qualifiers: Laterality: left Lung location: upper lobe of lung Qualified Code(s): J18.1 - Lobar pneumonia, unspecified organism
[2019-01-10] MEDS: Mirabegron [Myrbetriq] 50 MG PO SCH (08:52)
[2019-01-10] MEDS: Apixaban 5 MG TABLET PO SCH (08:52)
[2019-01-10] MEDS: Diltiazem CD (24hr) 240 MG CAPSULE PO SCH (08:52)
[2019-01-10] MEDS: Primidone 50 MG TABLET PO SCH (08:52)
[2019-01-10] MEDS ORDERED: levoFLOXacin 750 MG TABLET PO SCH (09:00)
[2019-01-10 11:00] VITALS: BP 145/76
== END 2019-01-10 12:55 | DRG 871 ==
LOC: EMEROOARM 12:53 → 3BNU 12:53 → SUATTDRO 17:25 → OBSVTOIN 17:25 → 3BNU 18:10 → 2ANU 01-05 15:51
PROVIDERS: ADMIT Internal Medicine; ATTEND Internal Medicine

== ENCOUNTER 2019-08-18 15:20 | Observation (INO) ==
[2019-08-18 17:15] LABS: Bilirubin,Urine Small (Negative); Blood,Urine Trace (Negative); Clarity,Urine Clear (Clear); Color,Urine Yellow (Yellow); Glucose,Urine (UA) Normal (Normal); Ketones,Urine Negative (Negative); Leukocyte Esterase,Urine Negative (Negative); Nitrite,Urine Negative (Negative); PH,Urine 5.5 pH Units (5.0-8.0); Protein,Urine Trace mg/dL (Neg-Trace); Specific Gravity,Urine 1.028 (1.010-1.025); Urobilinogen,Urine Normal (Normal)
[2019-08-18 17:17] LABS: Bacteria,Urine None Seen per hpf (None-Few); Hyaline Casts,Urine None Seen per lpf (None-Few); Squamous Epithelial Cell,Urine Many per lpf (None-Few)
[2019-08-18] MEDS ORDERED: Ertapenem 1,000 MG in 0.9 % Sodium Chloride Mini Bag 100 ML IVPB ONE (17:28)
[2019-08-18 17:29] LABS: Basophils % 0.7 %; Eosinophils # 0.2 K/mcL (0.0-0.6); Eosinophils % 4.2 %; Hematocrit 33.3 % (35.3-44.9); Hemoglobin 10.9 g/dL (11.5-15.4); Immature Granulocytes % 0.3 % (0-4); Lymphocytes # 1.2 K/mcL (0.6-4.6); Lymphocytes % 20.1 %; Mean Corpuscular HGB Conc 32.7 g/dL (31.6-35.5); Mean Corpuscular Hemoglobin 30.7 pg (28.0-33.3); Mean Corpuscular Volume 93.8 fL (83.0-100.0); Monocytes # 0.6 K/mcL (0.0-1.3); Monocytes % 10.6 %; Neutrophils # 3.7 K/mcL (1.6-8.9); Platelet Count 266 K/mcL (140-400); Red Blood Count 3.55 M/mcL (3.82-4.97); Red Cell Distribution Width 12.6 % (11.5-14.5); Segmented Neutrophils % 64.1 %; White Blood Count 5.8 K/mcL (4.3-11.1)
[2019-08-18 17:49] LABS: Calcium 9.2 mg/dL (8.6-10.3); Potassium 4.6 mEq/L (3.5-5.1)
[2019-08-18] MEDS ORDERED: Naloxone 0.4 MG/ML INJ IVP PRN (18:22)
[2019-08-18] MEDS: 0.9 % Sodium Chloride 1,000 ML IVC SCH (19:55)
[2019-08-19] MEDS ORDERED: [Myrbetriq] 50 MG PO SCH (09:00)
[2019-08-19] MEDS: Apixaban 5 MG TABLET PO SCH ×2 (09:51→21:10)
[2019-08-19] MEDS: Diltiazem CD (24hr) 240 MG CAPSULE PO SCH (09:51)
[2019-08-19] MEDS: Cyanocobalamin (B-12) 1,000 MCG TABLET PO SCH (09:53)
[2019-08-19] MEDS: Cholecalciferol (D-3) 1,000 UNIT (25MCG) TABLET PO SCH (09:53)
[2019-08-19 10:21] LABS: Basophils % 0.5 %; Eosinophils # 0.2 K/mcL (0.0-0.6); Eosinophils % 3.8 %; Hemoglobin 9.5 g/dL (11.5-15.4); Immature Granulocytes % 0.5 % (0-4); Immature Platelets 1.2 % (1.1-6.1); Lymphocytes # 0.7 K/mcL (0.6-4.6); Lymphocytes % 17.7 %; Mean Corpuscular HGB Conc 31.7 g/dL (31.6-35.5); Mean Corpuscular Hemoglobin 30.6 pg (28.0-33.3); Mean Corpuscular Volume 96.8 fL (83.0-100.0); Mean Platelet Volume 9.1 fL (9.4-12.4); Monocytes # 0.5 K/mcL (0.0-1.3); Neutrophils # 2.8 K/mcL (1.6-8.9); Platelet Count 249 K/mcL (140-400); Red Cell Distribution Width 12.9 % (11.5-14.5); Segmented Neutrophils % 66.5 %; White Blood Count 4.2 K/mcL (4.3-11.1)
[2019-08-19 10:34] LABS: Calcium 8.1 mg/dL (8.6-10.3); Potassium 4.1 mEq/L (3.5-5.1)
[2019-08-19] MEDS: Primidone 50 MG TABLET PO SCH (11:25)
[2019-08-19] MEDS: [Myrbetriq] 50 MG PO SCH (11:31)
[2019-08-19] MEDS: 0.9 % Sodium Chloride 1,000 ML IVC SCH (11:31)
[2019-08-19] MEDS ORDERED: Ertapenem 1,000 MG in 0.9 % Sodium Chloride Mini Bag 100 ML IVPB SCH (18:00)
[2019-08-19] MEDS ORDERED: Primidone 50 MG TABLET PO SCH (21:00)
[2019-08-20 07:24] VITALS: BP 129/74
[2019-08-20] MEDS: Apixaban 5 MG TABLET PO SCH (08:23)
[2019-08-20] MEDS: Cholecalciferol (D-3) 1,000 UNIT (25MCG) TABLET PO SCH (08:23)
[2019-08-20] MEDS: Primidone 50 MG TABLET PO SCH (08:25)
[2019-08-20] MEDS: Cyanocobalamin (B-12) 1,000 MCG TABLET PO SCH (08:25)
[2019-08-20] MEDS: Diltiazem CD (24hr) 240 MG CAPSULE PO SCH (08:25)
[2019-08-20] MEDS: [Myrbetriq] 50 MG PO SCH (08:27)
[2019-08-20 09:16] LABS: Basophils % 0.5 %; Eosinophils # 0.1 K/mcL (0.0-0.6); Eosinophils % 2.6 %; Hematocrit 33.1 % (35.3-44.9); Hemoglobin 10.9 g/dL (11.5-15.4); Lymphocytes # 0.8 K/mcL (0.6-4.6); Mean Corpuscular HGB Conc 32.9 g/dL (31.6-35.5); Mean Corpuscular Hemoglobin 31.1 pg (28.0-33.3); Mean Corpuscular Volume 94.6 fL (83.0-100.0); Mean Platelet Volume 9.2 fL (9.4-12.4); Monocytes # 0.5 K/mcL (0.0-1.3); Monocytes % 13.4 %; Neutrophils # 2.3 K/mcL (1.6-8.9); Platelet Count 255 K/mcL (140-400); Red Cell Distribution Width 12.6 % (11.5-14.5); Segmented Neutrophils % 61.5 %; White Blood Count 3.8 K/mcL (4.3-11.1)
[2019-08-20 09:35] LABS: BUN/Creatinine Ratio 20 (6-26); Blood Urea Nitrogen 19 mg/dL (8-23); Calcium 8.7 mg/dL (8.6-10.3); Carbon Dioxide 23 mEq/L (23-29); Chloride 104 mEq/L (98-107); Glucose 149 mg/dL (70-105); Osmolality,Calculated 289 (280-300); Potassium 3.8 mEq/L (3.5-5.1); Sodium 137 mEq/L (136-145); eGFR For African Americans > 60 (> 60); eGFR For Non-African Americans 55 (> 60)
== END 2019-08-20 16:30 | disposition home or self-care (01) ==
LOC: EMEROOARM 15:20 → 3ANU 15:20 → SUATTDRO 17:38 → 3ANU 18:15
PROVIDERS: ADMIT Internal Medicine; ATTEND Internal Medicine

== ENCOUNTER 2019-10-03 11:30 | Inpatient (IN) ==
[2019-10-03 12:46] LABS: Basophils # 0.1 K/mcL (0.0-0.2); Basophils % 1.2 %; Eosinophils # 0.1 K/mcL (0.0-0.6); Eosinophils % 2.4 %; Hematocrit 36.8 % (35.3-44.9); Hemoglobin 12.1 g/dL (11.5-15.4); Immature Granulocytes % 0.3 % (0-4); Lymphocytes # 1.7 K/mcL (0.6-4.6); Lymphocytes % 30.3 %; Mean Corpuscular HGB Conc 32.9 g/dL (31.6-35.5); Mean Corpuscular Hemoglobin 31.3 pg (28.0-33.3); Mean Corpuscular Volume 95.1 fL (83.0-100.0); Mean Platelet Volume 9.2 fL (9.4-12.4); Monocytes # 0.5 K/mcL (0.0-1.3); Monocytes % 7.8 %; Neutrophils # 3.3 K/mcL (1.6-8.9); Platelet Count 338 K/mcL (140-400); Red Blood Count 3.87 M/mcL (3.82-4.97); Red Cell Distribution Width 12.2 % (11.5-14.5); White Blood Count 5.8 K/mcL (4.3-11.1)
[2019-10-03 12:46] LABS: Bilirubin,Urine Small (Negative); Blood,Urine Trace (Negative); Clarity,Urine Cloudy (Clear); Color,Urine Dark Yellow (Yellow); Glucose,Urine (UA) Normal (Normal); Ketones,Urine Trace mg/dL (Negative); Leukocyte Esterase,Urine Moderate (Negative); Nitrite,Urine Positive (Negative); Protein,Urine Trace mg/dL (Neg-Trace); Specific Gravity,Urine 1.026 (1.010-1.025); Urobilinogen,Urine Normal (Normal)
[2019-10-03 12:48] LABS: Bacteria,Urine Many per hpf (None-Few); Squamous Epithelial Cell,Urine Many per lpf (None-Few); WBC,Urine TNTC per hpf (0-3)
[2019-10-03 13:07] LABS: Calcium 9.5 mg/dL (8.6-10.3); Potassium 4.1 mEq/L (3.5-5.1)
[2019-10-03] MEDS ORDERED: Piperacillin/Tazobactam 3.375 GM in 0.9 % Sodium Chloride Mini Bag 100 ML IVPB ONE (13:11)
[2019-10-03] MEDS ORDERED: Acetaminophen 325 MG TABLET PO PRN (13:33)
[2019-10-03] MEDS ORDERED: Naloxone 0.4 MG/ML INJ IVP PRN (13:33)
[2019-10-03] MEDS ORDERED: Ringers Solution, Lactated 1,000 ML IVC SCH (13:45)
[2019-10-03] MEDS: Ertapenem 1,000 MG in 0.9 % Sodium Chloride Mini Bag 100 ML IVPB SCH (15:34)
[2019-10-03] MEDS: Apixaban 2.5 MG TABLET PO SCH (20:07)
[2019-10-04 04:31] LABS: INR 1.2; Prothrombin Time 13.6 Seconds (9.4-12.1)
[2019-10-04 04:34] LABS: Activated Partial Thrombo Time 33.1 Seconds (26.0-36.0)
[2019-10-04 04:45] LABS: BUN/Creatinine Ratio 25 (6-26); Blood Urea Nitrogen 25 mg/dL (8-23); Calcium 8.9 mg/dL (8.6-10.3); Carbon Dioxide 27 mEq/L (23-29); Chloride 106 mEq/L (98-107); Glucose 108 mg/dL (70-105); Magnesium 1.9 mg/dL (1.6-2.6); Osmolality,Calculated 297 (280-300); Phosphorous 3.3 mg/dL (2.7-4.5); Potassium 3.6 mEq/L (3.5-5.1); Sodium 141 mEq/L (136-145); eGFR For African Americans > 60 (> 60); eGFR For Non-African Americans 51 (> 60)
[2019-10-04] MEDS: Cholecalciferol (D-3) 1,000 UNIT (25MCG) TABLET PO SCH (09:37)
[2019-10-04] MEDS: Apixaban 2.5 MG TABLET PO SCH ×2 (09:37→21:26)
[2019-10-04] MEDS: Diltiazem CD (24hr) 240 MG CAPSULE PO SCH (09:37)
[2019-10-04] MEDS: Cyanocobalamin (B-12) 1,000 MCG TABLET PO SCH (09:37)
[2019-10-04] MEDS: Ertapenem 1,000 MG in 0.9 % Sodium Chloride Mini Bag 100 ML IVPB SCH (09:37)
[2019-10-04] MEDS: Primidone 50 MG TABLET PO SCH (21:26)
[2019-10-05 06:52] LABS: Basophils % 0.9 %; Eosinophils # 0.2 K/mcL (0.0-0.6); Eosinophils % 3.2 %; Hematocrit 32.4 % (35.3-44.9); Hemoglobin 10.8 g/dL (11.5-15.4); Immature Granulocytes % 0.2 % (0-4); Lymphocytes # 1.6 K/mcL (0.6-4.6); Lymphocytes % 33.9 %; Mean Corpuscular HGB Conc 33.3 g/dL (31.6-35.5); Mean Corpuscular Hemoglobin 31.4 pg (28.0-33.3); Mean Corpuscular Volume 94.2 fL (83.0-100.0); Mean Platelet Volume 8.5 fL (9.4-12.4); Monocytes # 0.5 K/mcL (0.0-1.3); Monocytes % 10.2 %; Neutrophils # 2.4 K/mcL (1.6-8.9); Platelet Count 255 K/mcL (140-400); Red Blood Count 3.44 M/mcL (3.82-4.97); Red Cell Distribution Width 12.1 % (11.5-14.5); Segmented Neutrophils % 51.6 %; White Blood Count 4.7 K/mcL (4.3-11.1)
[2019-10-05 07:44] LABS: BUN/Creatinine Ratio 23 (6-26); Blood Urea Nitrogen 23 mg/dL (8-23); Calcium 8.9 mg/dL (8.6-10.3); Carbon Dioxide 29 mEq/L (23-29); Chloride 102 mEq/L (98-107); Glucose 104 mg/dL (70-105); Magnesium 1.9 mg/dL (1.6-2.6); Osmolality,Calculated 294 (280-300); Potassium 3.8 mEq/L (3.5-5.1); Sodium 140 mEq/L (136-145); eGFR For African Americans > 60 (> 60); eGFR For Non-African Americans 53 (> 60)
[2019-10-05] MEDS: Ertapenem 1,000 MG in 0.9 % Sodium Chloride Mini Bag 100 ML IVPB SCH (09:39)
[2019-10-05] MEDS: Cholecalciferol (D-3) 1,000 UNIT (25MCG) TABLET PO SCH (09:39)
[2019-10-05] MEDS: Cyanocobalamin (B-12) 1,000 MCG TABLET PO SCH (09:39)
[2019-10-05] MEDS: Apixaban 2.5 MG TABLET PO SCH ×2 (09:39→21:09)
[2019-10-05] MEDS: Diltiazem CD (24hr) 240 MG CAPSULE PO SCH (09:39)
[2019-10-05] MEDS: Primidone 50 MG TABLET PO SCH (21:09)
[2019-10-05] MEDS: Lactobacillus 1 EACH CAP.SPRINK PO SCH (21:09)
[2019-10-06 09:01] LABS: Basophils % 0.8 %; Eosinophils # 0.1 K/mcL (0.0-0.6); Eosinophils % 2.5 %; Hematocrit 33.9 % (35.3-44.9); Hemoglobin 10.9 g/dL (11.5-15.4); Immature Granulocytes % 0.4 % (0-4); Lymphocytes # 1.6 K/mcL (0.6-4.6); Lymphocytes % 29.4 %; Mean Corpuscular HGB Conc 32.2 g/dL (31.6-35.5); Mean Corpuscular Hemoglobin 30.6 pg (28.0-33.3); Mean Corpuscular Volume 95.2 fL (83.0-100.0); Mean Platelet Volume 8.5 fL (9.4-12.4); Monocytes # 0.5 K/mcL (0.0-1.3); Monocytes % 9.3 %; Platelet Count 272 K/mcL (140-400); Red Blood Count 3.56 M/mcL (3.82-4.97); Red Cell Distribution Width 12.1 % (11.5-14.5); Segmented Neutrophils % 57.6 %; White Blood Count 5.3 K/mcL (4.3-11.1)
[2019-10-06 09:22] LABS: Calcium 9.2 mg/dL (8.6-10.3); Potassium 4.2 mEq/L (3.5-5.1)
[2019-10-06] MEDS: Diltiazem CD (24hr) 240 MG CAPSULE PO SCH (09:38)
[2019-10-06] MEDS: Primidone 50 MG TABLET PO SCH ×2 (09:38→21:17)
[2019-10-06] MEDS: Cholecalciferol (D-3) 1,000 UNIT (25MCG) TABLET PO SCH (09:39)
[2019-10-06] MEDS: Cyanocobalamin (B-12) 1,000 MCG TABLET PO SCH (09:39)
[2019-10-06] MEDS: Apixaban 2.5 MG TABLET PO SCH ×2 (09:39→21:17)
[2019-10-06] MEDS: Ertapenem 1,000 MG in 0.9 % Sodium Chloride Mini Bag 100 ML IVPB SCH (09:39)
[2019-10-06] MEDS: Lactobacillus 1 EACH CAP.SPRINK PO SCH ×2 (09:39→21:17)
[2019-10-07 02:50] LABS: Basophils # 0.1 K/mcL (0.0-0.2); Basophils % 1.3 %; Eosinophils # 0.2 K/mcL (0.0-0.6); Eosinophils % 3.3 %; Hematocrit 32.8 % (35.3-44.9); Hemoglobin 10.7 g/dL (11.5-15.4); Immature Granulocytes % 0.3 % (0-4); Lymphocytes # 2.5 K/mcL (0.6-4.6); Lymphocytes % 40.3 %; Mean Corpuscular HGB Conc 32.6 g/dL (31.6-35.5); Mean Corpuscular Volume 95.1 fL (83.0-100.0); Mean Platelet Volume 8.8 fL (9.4-12.4); Monocytes # 0.6 K/mcL (0.0-1.3); Monocytes % 8.9 %; Neutrophils # 2.8 K/mcL (1.6-8.9); Platelet Count 268 K/mcL (140-400); Red Blood Count 3.45 M/mcL (3.82-4.97); Red Cell Distribution Width 12.3 % (11.5-14.5); Segmented Neutrophils % 45.9 %; White Blood Count 6.2 K/mcL (4.3-11.1)
[2019-10-07 03:00] LABS: Calcium 9.1 mg/dL (8.6-10.3)
[2019-10-07] MEDS: Diltiazem CD (24hr) 240 MG CAPSULE PO SCH (08:58)
[2019-10-07] MEDS: Cholecalciferol (D-3) 1,000 UNIT (25MCG) TABLET PO SCH (08:58)
[2019-10-07] MEDS: Ertapenem 1,000 MG in 0.9 % Sodium Chloride Mini Bag 100 ML IVPB SCH (08:58)
[2019-10-07] MEDS: Apixaban 2.5 MG TABLET PO SCH (08:58)
[2019-10-07] MEDS: Lactobacillus 1 EACH CAP.SPRINK PO SCH (08:59)
[2019-10-07] MEDS: Primidone 50 MG TABLET PO SCH (08:59)
[2019-10-07] MEDS: Cyanocobalamin (B-12) 1,000 MCG TABLET PO SCH (08:59)
[2019-10-07 11:27] VITALS: BP 119/71
== END 2019-10-07 15:27 | disposition home or self-care (01) | DRG 690 ==
LOC: EMEROOARM 11:30 → 3ANU 11:30 → SUATTDRO 13:33 → 3ANU 14:36
PROVIDERS: ADMIT Internal Medicine; ATTEND Pharmacist